=== PATIENT | male | born 1965 | race Caucasian/White ===

== ENCOUNTER 2017-08-22 10:23 | Inpatient (IN) | payer OTHER ==
[2017-08-22 11:01] VITALS: BMI 46.0
--- NOTE | 2017-08-22 13:04 | HP ---
Admission ROS [facility] Chief Complaint: I AM HERE FOR REHAB FROM ALCOHOL AND MARIJUANA Allergies/Adverse Reactions: Allergies Allergy/AdvReac Type Severity Reaction Status Date / Time No Known Drug Allergies Allergy Unknown Verified 05/10/14 18:18 lactose AdvReac Unknown LACTOSE Verified 05/10/14 18:18 INTOLERANCE History of Present Illness: THIS 52 YEARS OLD MALE WITH ALCOHOL AND MARIJUANA DEPENDENCE,SEEKING REHAB,LAST TREATMENT 2014 [facility] ADMITTED IN [facility] FOR GI BLEED,CELLULITIS OF LEFT LEG,AND DETOX FROM ALCOHOL HISTORY OF HTN NO MED ESOPHAGEAL BLEEDING LONGEST PERIOD OF SOBRIETY 3 YEARS SEIZURE LAST 5 YEARS AGO HISTORY OF DT DEPRESSION Exam Limitations: No Limitations - Ebola screening Have you traveled outside of the country in the last 21 days: No Have you had contact with anyone from an Ebola affected area: No Have you been sick,other than usual withdrawal symptoms: No Do you have a fever: No - Review of Systems Constitutional: No Symptoms Reported EENT: reports: No Symptoms Reported Respiratory: reports: No Symptoms reported (ASTHMA), Other Cardiac: reports: No Symptoms Reported GI: reports: No Symptoms Reported : reports: No Symptoms Reported Musculoskeletal: reports: No Symptoms Reported Neuro: reports: No Symptoms reported Endocrine: reports: No Symptoms Reported Hematology: reports: No Symptoms Reported Psychiatric: reports: No Sypmtoms Reported, Judgement Intact, Mood/Affect Appropiate, Orientated x3, Depressed Patient History - Patient Medical History Hx Anemia: Yes (NO MEDCATION) Hx Asthma: Yes (ON ALBUTEROL INHALER) Hx Chronic Obstructive Pulmonary Disease (COPD): No Hx Cancer: No Hx Cardiac Disorders: No Hx Congestive Heart Failure: No Hx Hypertension: Yes (ON MED,NO COMPLIANCE) Hx Hypercholesterolemia: No Hx Pacemaker: No HX Cerebrovascular Accident: No Hx Seizures: Yes (alcohol related-last episode was in 2011) Hx Dementia: No Hx Diabetes: No Hx Gastrointestinal Disorders: Yes (GI bleeding) Hx Liver Disease: No Hx Genitourinary Disorders: No Hx Sexually Transmitted Disorders: No Hx Renal Disease (ESRD): No Hx Thyroid Disease: No Hx Human Immunodeficiency Virus (HIV): No Hx Hepatitis C: No Hx Depression: Yes Hx Suicide Attempt: Yes (cut right wrist at age 37) Hx Bipolar Disorder: No Hx Schizophrenia: No Other Medical History: NO SUCIDAL,NO HOMICIDAL - Patient Surgical History Past Surgical History: Yes Hx Neurologic Surgery: No Hx Cataract Extraction: No Hx Cardiac Surgery: No Hx Lung Surgery: No Hx Breast Surgery: No Hx Breast Biopsy: No Hx Abdominal Surgery: No Hx Appendectomy: No Hx Cholecystectomy: No Hx Genitourinary Surgery: No Hx Section: No Hx Orthopedic Surgery: No Other Surgical History: left inguinal hernia repair in 1997 Anesthesia Reaction: No - PPD History Previous Implant?: Yes Documented Results: Negative w/proof Implanted On Prior [facility] Admission?: Yes Date: 05/12/14 Results: 0 mm PPD to be Administered?: Yes - Smoking Cessation Smoking history: Current every day smoker Have you smoked in the past 12 months: Yes Aproximately how many cigarettes per day: 20 Cigars Per Day: 0 Hx Chewing Tobacco Use: No Initiated information on smoking cessation: Yes 'Breaking Loose' booklet given: 08/22/17 - Substance & Tx. History Hx Alcohol Use: Yes Hx Substance Use: Yes Substance Use Type: Alcohol, Marijuana - Substances Abused Alcohol-gui/vodka/beer Route: Oral Frequency: Daily Amount used: 2 pts./1-6 pk. Age of first use: 13 Date of Last Use: 08/14/17 Marijuana Route: Smoking Frequency: Daily Amount used: $10 Age of first use: 13 Date of Last Use: 08/16/17 Family Disease History - Family Disease History Family Disease History: Heart Disease: Brother (DC, Lung ca ), CA: Mother (HAD LUNG CA. AND ), Respiratory: Brother Admission Physical Exam [facility] - Vital Signs Vital Signs: Vital Signs - 24 hr 08/22/17 10:48 Temperature 96.1 F L Pulse Rate 89 Respiratory 18 Rate Blood Pressure 122/80 - Physical General Appearance: Yes: Within Normal Limits, No Apparent Distress HEENTM: Yes: Normal ENT Inspection, CHELSY, Pharynx Normal Respiratory: Yes: Lungs Clear, Normal Breath Sounds, No Respiratory Distress Neck: Yes: Within Normal Limits Breast: Yes: Other (GYNECOMASTIA) Cardiology: Yes: Within Normal Limits, Regular Rhythm, Regular Rate, S1, S2 Abdominal: Yes: Within Normal Limits, Normal Bowel Sounds, Non Tender, Flat, Soft Genitourinary: Yes: Within Normal Limits Musculoskeletal: Yes: Within Normal Limits, full range of Motion Extremities: Yes: Normal Inspection, Non-Tender Neurological: Yes: commercial assistant II-XII NML intact, Fully Oriented, Alert, Motor Strength 5/5 Integumentary: Yes: Within Normal Limits Lymphatic: Yes: Within Normal Limits - Diagnostic (1) Essential hypertension Current Visit: No Status: Active (2) Seizure disorder Current Visit: No Status: Active (3) cannabis dependence Current Visit: No Status: Active (4) chronic edema both legs Current Visit: No Status: Active (5) depression Current Visit: No Status: Active (6) gynecomastia Current Visit: No Status: Active (7) s/p left inguinal herniorrhaphy Current Visit: No Status: Active (8) upper gi bleeding requiring transfusion by history Current Visit: No Status: Active (9) Alcohol dependence Current Visit: No Status: Acute (10) Nicotine dependence Current Visit: No Status: Acute Cleared for Admission [facility] - Detox or Rehab Claeared for Rehab Admission: Yes S Breath Alcohol Content Breath Alcohol Content: 0 Urine Drug Screen - Results Drug Screen Negative: No Urine Drug Screen Results: THC-Marijuana, BZO-Benzodiazepines, TCA-Tricyclic Antidepress Inpatient Rehab Admission - Initial Determination Are CD services needed?: Yes Free of communicable disease: Yes Not in need of hospitalization: Yes - Rehab Admission Criteria Previous failed treatment: Yes Poor recovery environment: Yes Comorbidities: Yes Patient is meeting Inpatient Rehab admission criteria:: Yes
[2017-08-22] MEDS ORDERED: MAGNESIUM HYDROX 2400MG/30ML ORAL SUSPENSION 30 ML CUP PO PRN (13:20)
[2017-08-22] MEDS ORDERED: P-EPHED 60MG/TRIPROLIDI 2.5MG TABLET PO PRN (13:20)
[2017-08-22] MEDS ORDERED: MAGNESIUM CITRATE 300 ML BOTTLE PO PRN (13:20)
[2017-08-22] MEDS ORDERED: MENTHOL/PHENOL 1 EACH UD MM PRN (13:20)
[2017-08-22] MEDS ORDERED: LOPERAMIDE HCL 2 MG CAPSULE PO PRN (13:20)
[2017-08-22] MEDS ORDERED: guaiFENesin/D-METHORPHAN HB 10 ML UNIT-DOSE CUPS PO PRN (13:20)
[2017-08-22] MEDS: NICOTINE 21 MG/24 HOURS TOPICAL PATCH TD SCH (15:27)
[2017-08-22] MEDS ORDERED: TUBERCULIN PPD 5 TU/0.1ML VIAL ID ONE (15:30)
[2017-08-22 19:07] LABS: MCH 28.6 pg (25.7-33.7); MCHC 33.3 g/dl (32.0-35.9); MEAN PLT VOLUME 9.7 fl (7.5-11.1); PLATELET COUNT 125 K/MM3 (134-434); RDW 16.1 % (11.9-15.9); WHITE BLOOD COUNT 6.5 K/mm3 (4.0-10.0)
[2017-08-22 19:48] LABS: URINE APPEARANCE SLCLOUDY; URINE BILIRUBIN NEGATIVE (NEGATIVE); URINE BLOOD NEGATIVE (NEGATIVE); URINE COLOR AMBER; URINE GLUCOSE (UA) NEGATIVE (NEGATIVE); URINE KETONE TRACE (NEGATIVE); URINE NITRITE NEGATIVE (NEGATIVE); URINE PROTEIN NEGATIVE (NEGATIVE); URINE UROBILINOGEN NEGATIVE mg/dL (0.2-1.0)
[2017-08-22 20:24] LABS: ALK PHOS 79 U/L (45-117); ANION GAP 10 (8-16); BILIRUBIN,TOTAL 0.6 mg/dL (0.2-1.0); CALCIUM 8.6 mg/dL (8.5-10.1); CO2 25 mmol/L (21-32); CREATININE 0.7 mg/dL (0.7-1.3); GLUCOSE,RANDOM 150 mg/dL (74-106); SGOT/AST 32 U/L (15-37); SGPT/ALT 46 U/L (12-78); TOT PROT 6.9 g/dl (6.4-8.2)
[2017-08-22] MEDS: THIAMINE HCL 100 MG TABLET (FP) PO SCH (21:19)
[2017-08-22] MEDS: hydrOXYzine PAMOATE 50 MG CAPSULE (FP) PO PRN (21:20)
[2017-08-22] MEDS: ALBUTEROL SO4 18 GM HFA INHALER IH PRN (21:21)
[2017-08-22 21:26] LABS: URINE LEUK ESTERASE Negative (NEGATIVE)
[2017-08-23] MEDS: PRENATAL VITAMINS W/ FOLIC ACID TABLET (FP) PO SCH (09:46)
[2017-08-23] MEDS: NICOTINE 21 MG/24 HOURS TOPICAL PATCH TD SCH (09:46)
--- NOTE | 2017-08-23 16:23 | EKG ---
Test Reason : Blood Pressure : / mmHG Vent. Rate : 087 BPM Atrial Rate : 087 BPM P-R Int : 144 ms QRS Dur : 094 ms QT Int : 396 ms P-R-T Axes : 043 048 095 degrees QTc Int : 476 ms NORMAL SINUS RHYTHM T WAVE ABNORMALITY, CONSIDER ANTEROLATERAL ISCHEMIA PROLONGED QT ABNORMAL ECG WHEN COMPARED WITH ECG OF 22-AUG-2017 23:24, NO SIGNIFICANT CHANGE WAS FOUND REPEAT EKG IF CLINICALLY INDICATED Confirmed by SANCHEZ HUNTLEY MD ([id number]) on 08/23/2017 4:23:29 PM Referred By: VASQUEZ SCHAFER Confirmed By:SANCHEZ HUNTLEY MD
--- NOTE | 2017-08-23 16:24 | EKG ---
Test Reason : Blood Pressure : / mmHG Vent. Rate : 094 BPM Atrial Rate : 094 BPM P-R Int : 136 ms QRS Dur : 094 ms QT Int : 368 ms P-R-T Axes : 041 046 104 degrees QTc Int : 460 ms NORMAL SINUS RHYTHM T WAVE ABNORMALITY, CONSIDER LATERAL ISCHEMIA PROLONGED QT ABNORMAL ECG WHEN COMPARED WITH ECG OF 21-MAR-2014 23:11, INVERTED T WAVES HAVE REPLACED NONSPECIFIC T WAVE ABNORMALITY IN ANTEROLATERAL LEADS REPEAT EKG IF CLINICALLY INDICATED Confirmed by SANCHEZ HUNTLEY MD ([id number]) on 08/23/2017 4:23:58 PM Referred By: VASQUEZ SCHAFER Confirmed By:SANCHEZ HUNTLEY MD
[2017-08-23] MEDS: THIAMINE HCL 100 MG TABLET (FP) PO SCH (21:11)
[2017-08-23] MEDS: hydrOXYzine PAMOATE 50 MG CAPSULE (FP) PO PRN (21:11)
[2017-08-23] MEDS: ALBUTEROL SO4 18 GM HFA INHALER IH PRN (21:12)
[2017-08-24] MEDS: ALBUTEROL SO4 18 GM HFA INHALER IH PRN (09:42)
[2017-08-24] MEDS: PRENATAL VITAMINS W/ FOLIC ACID TABLET (FP) PO SCH (09:42)
[2017-08-24] MEDS: NICOTINE 21 MG/24 HOURS TOPICAL PATCH TD SCH (09:42)
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
[2017-08-24] MEDS: hydrOXYzine PAMOATE 50 MG CAPSULE (FP) PO PRN (21:46)
[2017-08-24] MEDS: THIAMINE HCL 100 MG TABLET (FP) PO SCH (21:46)
[2017-08-24] MEDS: SUVOREXANT 10 MG TABLET PO PRN (21:46)
[2017-08-24] MEDS: IBUPROFEN 400 MG TABLET (FP) PO PRN (21:46)
[2017-08-25] MEDS: PRENATAL VITAMINS W/ FOLIC ACID TABLET (FP) PO SCH (09:45)
[2017-08-25] MEDS: NICOTINE 21 MG/24 HOURS TOPICAL PATCH TD SCH (09:45)
[2017-08-25] MEDS: IBUPROFEN 400 MG TABLET (FP) PO PRN (09:46)
[2017-08-25] MEDS: hydrOXYzine PAMOATE 50 MG CAPSULE (FP) PO PRN (21:26)
[2017-08-25] MEDS: ACETAMINOPHEN 325 MG TABLET (FP) PO PRN (21:26)
[2017-08-25] MEDS: THIAMINE HCL 100 MG TABLET (FP) PO SCH (21:26)
[2017-08-25] MEDS: SUVOREXANT 10 MG TABLET PO PRN (21:28)
[2017-08-25] MEDS: MAG HYDROX/AL HYDROX/SIMETH 30 ML UNIT-DOSE CUP PO PRN (22:28)
[2017-08-26] MEDS: NICOTINE 21 MG/24 HOURS TOPICAL PATCH TD SCH (09:37)
[2017-08-26] MEDS: PRENATAL VITAMINS W/ FOLIC ACID TABLET (FP) PO SCH (09:38)
[2017-08-26] MEDS: IBUPROFEN 400 MG TABLET (FP) PO PRN (09:38)
--- NOTE | 2017-08-26 13:07 | PN ---
[facility] Progress Note Note: c/o back pain and ankle swelling lidocaine patch, flexeril and elevate legs
[2017-08-26] MEDS: LIDOCAINE 5% TOPICAL PATCH TP SCH (14:30)
[2017-08-26] MEDS: FUROSEMIDE 40 MG TABLET (FP) PO SCH (14:31)
[2017-08-26] MEDS: CYCLOBENZAPRINE HCL 10 MG TABLET (FP) PO SCH ×2 (14:31→22:06)
[2017-08-26] MEDS: THIAMINE HCL 100 MG TABLET (FP) PO SCH (22:06)
[2017-08-26] MEDS: SUVOREXANT 10 MG TABLET PO PRN (22:07)
[2017-08-26] MEDS: LIDOCAINE PATCH REMOVAL MC SCH (22:08)
[2017-08-27] MEDS: CYCLOBENZAPRINE HCL 10 MG TABLET (FP) PO SCH ×3 (06:19→21:09)
[2017-08-27] MEDS: LIDOCAINE 5% TOPICAL PATCH TP SCH (09:37)
[2017-08-27] MEDS: FUROSEMIDE 40 MG TABLET (FP) PO SCH (09:37)
[2017-08-27] MEDS: NICOTINE 21 MG/24 HOURS TOPICAL PATCH TD SCH (09:37)
[2017-08-27] MEDS: PRENATAL VITAMINS W/ FOLIC ACID TABLET (FP) PO SCH (09:37)
[2017-08-27] MEDS: ACETAMINOPHEN 325 MG TABLET (FP) PO PRN (17:58)
[2017-08-27] MEDS: THIAMINE HCL 100 MG TABLET (FP) PO SCH (21:09)
[2017-08-27] MEDS: LIDOCAINE PATCH REMOVAL MC SCH (21:10)
[2017-08-27] MEDS: SUVOREXANT 10 MG TABLET PO PRN (22:23)
[2017-08-28] MEDS: CYCLOBENZAPRINE HCL 10 MG TABLET (FP) PO SCH ×3 (06:33→21:31)
[2017-08-28] MEDS: FUROSEMIDE 40 MG TABLET (FP) PO SCH (09:45)
[2017-08-28] MEDS: PRENATAL VITAMINS W/ FOLIC ACID TABLET (FP) PO SCH (09:45)
[2017-08-28] MEDS: NICOTINE 21 MG/24 HOURS TOPICAL PATCH TD SCH (09:46)
[2017-08-28] MEDS: LIDOCAINE 5% TOPICAL PATCH TP SCH (09:46)
[2017-08-28] MEDS: SUVOREXANT 10 MG TABLET PO PRN (21:31)
[2017-08-28] MEDS: LIDOCAINE PATCH REMOVAL MC SCH (21:31)
[2017-08-28] MEDS: THIAMINE HCL 100 MG TABLET (FP) PO SCH (21:31)
[2017-08-29] MEDS: CYCLOBENZAPRINE HCL 10 MG TABLET (FP) PO SCH ×3 (05:59→21:13)
[2017-08-29] MEDS: LIDOCAINE 5% TOPICAL PATCH TP SCH (09:36)
[2017-08-29] MEDS: FUROSEMIDE 40 MG TABLET (FP) PO SCH (09:36)
[2017-08-29] MEDS: NICOTINE 21 MG/24 HOURS TOPICAL PATCH TD SCH (09:36)
[2017-08-29] MEDS: PRENATAL VITAMINS W/ FOLIC ACID TABLET (FP) PO SCH (09:36)
[2017-08-29] MEDS: MAG HYDROX/AL HYDROX/SIMETH 30 ML UNIT-DOSE CUP PO PRN (20:11)
[2017-08-29] MEDS: THIAMINE HCL 100 MG TABLET (FP) PO SCH (21:12)
[2017-08-29] MEDS: hydrOXYzine PAMOATE 50 MG CAPSULE (FP) PO PRN (21:12)
[2017-08-29] MEDS: LIDOCAINE PATCH REMOVAL MC SCH (21:13)
[2017-08-29] MEDS: SUVOREXANT 10 MG TABLET PO PRN (21:13)
[2017-08-30] MEDS: CYCLOBENZAPRINE HCL 10 MG TABLET (FP) PO SCH ×3 (06:16→21:39)
[2017-08-30] MEDS: FUROSEMIDE 40 MG TABLET (FP) PO SCH (09:24)
[2017-08-30] MEDS: LIDOCAINE 5% TOPICAL PATCH TP SCH (09:24)
[2017-08-30] MEDS: PRENATAL VITAMINS W/ FOLIC ACID TABLET (FP) PO SCH (09:24)
[2017-08-30] MEDS: NICOTINE 21 MG/24 HOURS TOPICAL PATCH TD SCH (09:24)
[2017-08-30] MEDS: MAG HYDROX/AL HYDROX/SIMETH 30 ML UNIT-DOSE CUP PO PRN (14:49)
[2017-08-30] MEDS: THIAMINE HCL 100 MG TABLET (FP) PO SCH (21:39)
[2017-08-30] MEDS: SUVOREXANT 10 MG TABLET PO PRN (21:41)
[2017-08-30] MEDS: LIDOCAINE PATCH REMOVAL MC SCH (21:52)
[2017-08-31] MEDS: CYCLOBENZAPRINE HCL 10 MG TABLET (FP) PO SCH ×3 (06:01→21:21)
[2017-08-31] MEDS: NICOTINE 21 MG/24 HOURS TOPICAL PATCH TD SCH (09:36)
[2017-08-31] MEDS: FUROSEMIDE 40 MG TABLET (FP) PO SCH (09:36)
[2017-08-31] MEDS: PRENATAL VITAMINS W/ FOLIC ACID TABLET (FP) PO SCH (09:36)
[2017-08-31] MEDS: LIDOCAINE 5% TOPICAL PATCH TP SCH (09:37)
[2017-08-31] MEDS: THIAMINE HCL 100 MG TABLET (FP) PO SCH (21:21)
[2017-08-31] MEDS: SUVOREXANT 10 MG TABLET PO PRN (21:22)
[2017-08-31] MEDS: LIDOCAINE PATCH REMOVAL MC SCH (21:53)
[2017-09-01] MEDS: CYCLOBENZAPRINE HCL 10 MG TABLET (FP) PO SCH ×3 (06:14→21:13)
[2017-09-01] MEDS: FUROSEMIDE 40 MG TABLET (FP) PO SCH (09:52)
[2017-09-01] MEDS: PRENATAL VITAMINS W/ FOLIC ACID TABLET (FP) PO SCH (09:52)
[2017-09-01] MEDS: LIDOCAINE 5% TOPICAL PATCH TP SCH (09:52)
[2017-09-01] MEDS: NICOTINE 21 MG/24 HOURS TOPICAL PATCH TD SCH (09:52)
[2017-09-01] MEDS: SUVOREXANT 10 MG TABLET PO PRN (21:13)
[2017-09-01] MEDS: THIAMINE HCL 100 MG TABLET (FP) PO SCH (21:13)
[2017-09-01] MEDS: LIDOCAINE PATCH REMOVAL MC SCH ×3 (22:05→22:38)
[2017-09-02] MEDS: CYCLOBENZAPRINE HCL 10 MG TABLET (FP) PO SCH ×3 (06:27→21:21)
[2017-09-02] MEDS: FUROSEMIDE 40 MG TABLET (FP) PO SCH (09:30)
[2017-09-02] MEDS: LIDOCAINE 5% TOPICAL PATCH TP SCH (09:30)
[2017-09-02] MEDS: NICOTINE 21 MG/24 HOURS TOPICAL PATCH TD SCH (09:30)
[2017-09-02] MEDS: PRENATAL VITAMINS W/ FOLIC ACID TABLET (FP) PO SCH (09:30)
[2017-09-02] MEDS: ALBUTEROL SO4 18 GM HFA INHALER IH PRN (09:30)
[2017-09-02] MEDS: THIAMINE HCL 100 MG TABLET (FP) PO SCH (21:21)
[2017-09-02] MEDS: LIDOCAINE PATCH REMOVAL MC SCH (22:07)
[2017-09-02] MEDS: SUVOREXANT 10 MG TABLET PO PRN (22:59)
[2017-09-03] MEDS: CYCLOBENZAPRINE HCL 10 MG TABLET (FP) PO SCH ×3 (06:12→21:17)
[2017-09-03] MEDS: NICOTINE 21 MG/24 HOURS TOPICAL PATCH TD SCH (09:42)
[2017-09-03] MEDS: LIDOCAINE 5% TOPICAL PATCH TP SCH (09:42)
[2017-09-03] MEDS: PRENATAL VITAMINS W/ FOLIC ACID TABLET (FP) PO SCH (09:42)
[2017-09-03] MEDS: FUROSEMIDE 40 MG TABLET (FP) PO SCH (09:42)
[2017-09-03] MEDS: THIAMINE HCL 100 MG TABLET (FP) PO SCH (21:17)
[2017-09-03] MEDS: hydrOXYzine PAMOATE 50 MG CAPSULE (FP) PO PRN (21:17)
[2017-09-03] MEDS: LIDOCAINE PATCH REMOVAL MC SCH (21:18)
[2017-09-04] MEDS: CYCLOBENZAPRINE HCL 10 MG TABLET (FP) PO SCH ×3 (06:28→21:12)
[2017-09-04] MEDS: NICOTINE 21 MG/24 HOURS TOPICAL PATCH TD SCH (09:29)
[2017-09-04] MEDS: FUROSEMIDE 40 MG TABLET (FP) PO SCH (09:29)
[2017-09-04] MEDS: PRENATAL VITAMINS W/ FOLIC ACID TABLET (FP) PO SCH (09:29)
[2017-09-04] MEDS: LIDOCAINE 5% TOPICAL PATCH TP SCH (09:29)
[2017-09-04] MEDS: THIAMINE HCL 100 MG TABLET (FP) PO SCH (21:12)
[2017-09-04] MEDS: SUVOREXANT 10 MG TABLET PO PRN (21:12)
[2017-09-04] MEDS: LIDOCAINE PATCH REMOVAL MC SCH (21:13)
[2017-09-05] MEDS: CYCLOBENZAPRINE HCL 10 MG TABLET (FP) PO SCH ×3 (06:26→21:26)
[2017-09-05] MEDS: ACETAMINOPHEN 325 MG TABLET (FP) PO PRN (06:49)
[2017-09-05] MEDS: LIDOCAINE 5% TOPICAL PATCH TP SCH (09:39)
[2017-09-05] MEDS: FUROSEMIDE 40 MG TABLET (FP) PO SCH (09:39)
[2017-09-05] MEDS: PRENATAL VITAMINS W/ FOLIC ACID TABLET (FP) PO SCH (09:39)
[2017-09-05] MEDS: NICOTINE 21 MG/24 HOURS TOPICAL PATCH TD SCH (09:40)
[2017-09-05] MEDS: THIAMINE HCL 100 MG TABLET (FP) PO SCH (21:27)
[2017-09-05] MEDS: SUVOREXANT 10 MG TABLET PO PRN (21:27)
[2017-09-05] MEDS: LIDOCAINE PATCH REMOVAL MC SCH (21:51)
[2017-09-06] MEDS: CYCLOBENZAPRINE HCL 10 MG TABLET (FP) PO SCH ×3 (05:58→21:07)
[2017-09-06] MEDS: PRENATAL VITAMINS W/ FOLIC ACID TABLET (FP) PO SCH (09:29)
[2017-09-06] MEDS: LIDOCAINE 5% TOPICAL PATCH TP SCH (09:29)
[2017-09-06] MEDS: NICOTINE 21 MG/24 HOURS TOPICAL PATCH TD SCH (09:29)
[2017-09-06] MEDS: FUROSEMIDE 40 MG TABLET (FP) PO SCH (09:29)
[2017-09-06] MEDS: THIAMINE HCL 100 MG TABLET (FP) PO SCH (21:07)
[2017-09-06] MEDS: LIDOCAINE PATCH REMOVAL MC SCH (21:14)
[2017-09-06] MEDS: SUVOREXANT 10 MG TABLET PO PRN (22:25)
[2017-09-07] MEDS: CYCLOBENZAPRINE HCL 10 MG TABLET (FP) PO SCH ×3 (06:04→21:06)
[2017-09-07] MEDS: NICOTINE 21 MG/24 HOURS TOPICAL PATCH TD SCH (09:46)
[2017-09-07] MEDS: PRENATAL VITAMINS W/ FOLIC ACID TABLET (FP) PO SCH (09:46)
[2017-09-07] MEDS: LIDOCAINE 5% TOPICAL PATCH TP SCH (09:47)
[2017-09-07] MEDS: FUROSEMIDE 40 MG TABLET (FP) PO SCH (09:47)
[2017-09-07] MEDS: hydrOXYzine PAMOATE 50 MG CAPSULE (FP) PO PRN (21:06)
[2017-09-07] MEDS: THIAMINE HCL 100 MG TABLET (FP) PO SCH (21:06)
[2017-09-07] MEDS: LIDOCAINE PATCH REMOVAL MC SCH (21:06)
[2017-09-07] MEDS: SUVOREXANT 10 MG TABLET PO PRN (21:07)
[2017-09-08] MEDS: CYCLOBENZAPRINE HCL 10 MG TABLET (FP) PO SCH ×3 (06:37→21:03)
[2017-09-08] MEDS: FUROSEMIDE 40 MG TABLET (FP) PO SCH (09:29)
[2017-09-08] MEDS: PRENATAL VITAMINS W/ FOLIC ACID TABLET (FP) PO SCH (09:29)
[2017-09-08] MEDS: NICOTINE 21 MG/24 HOURS TOPICAL PATCH TD SCH (09:29)
[2017-09-08] MEDS: LIDOCAINE 5% TOPICAL PATCH TP SCH (09:29)
[2017-09-08] MEDS: THIAMINE HCL 100 MG TABLET (FP) PO SCH (21:03)
[2017-09-08] MEDS: SUVOREXANT 10 MG TABLET PO PRN (21:03)
[2017-09-08] MEDS: LIDOCAINE PATCH REMOVAL MC SCH (21:05)
[2017-09-09] MEDS: IBUPROFEN 600 MG TABLET (FP) PO PRN ×3 (06:08→21:28)
[2017-09-09] MEDS: CYCLOBENZAPRINE HCL 10 MG TABLET (FP) PO SCH ×3 (06:08→21:27)
[2017-09-09] MEDS: NICOTINE 21 MG/24 HOURS TOPICAL PATCH TD SCH (09:40)
[2017-09-09] MEDS: ALBUTEROL SO4 18 GM HFA INHALER IH PRN (09:41)
[2017-09-09] MEDS: PRENATAL VITAMINS W/ FOLIC ACID TABLET (FP) PO SCH (09:41)
[2017-09-09] MEDS: FUROSEMIDE 40 MG TABLET (FP) PO SCH (09:41)
[2017-09-09] MEDS: LIDOCAINE 5% TOPICAL PATCH TP SCH (09:41)
[2017-09-09] MEDS: THIAMINE HCL 100 MG TABLET (FP) PO SCH (21:27)
[2017-09-09] MEDS: hydrOXYzine PAMOATE 50 MG CAPSULE (FP) PO PRN (21:29)
[2017-09-09] MEDS: LIDOCAINE PATCH REMOVAL MC SCH (21:35)
[2017-09-10] MEDS: CYCLOBENZAPRINE HCL 10 MG TABLET (FP) PO SCH ×3 (06:09→21:12)
[2017-09-10] MEDS: FUROSEMIDE 40 MG TABLET (FP) PO SCH (09:45)
[2017-09-10] MEDS: LIDOCAINE 5% TOPICAL PATCH TP SCH (09:45)
[2017-09-10] MEDS: NICOTINE 21 MG/24 HOURS TOPICAL PATCH TD SCH (09:45)
[2017-09-10] MEDS: IBUPROFEN 600 MG TABLET (FP) PO PRN ×2 (09:45→21:13)
[2017-09-10] MEDS: PRENATAL VITAMINS W/ FOLIC ACID TABLET (FP) PO SCH (09:45)
[2017-09-10] MEDS: hydrOXYzine PAMOATE 50 MG CAPSULE (FP) PO PRN (21:12)
[2017-09-10] MEDS: THIAMINE HCL 100 MG TABLET (FP) PO SCH (21:12)
[2017-09-10] MEDS: LIDOCAINE PATCH REMOVAL MC SCH (21:21)
[2017-09-11] MEDS: CYCLOBENZAPRINE HCL 10 MG TABLET (FP) PO SCH ×3 (05:55→21:12)
[2017-09-11] MEDS: NICOTINE 21 MG/24 HOURS TOPICAL PATCH TD SCH (09:30)
[2017-09-11] MEDS: FUROSEMIDE 40 MG TABLET (FP) PO SCH (09:30)
[2017-09-11] MEDS: PRENATAL VITAMINS W/ FOLIC ACID TABLET (FP) PO SCH (09:30)
[2017-09-11] MEDS: LIDOCAINE 5% TOPICAL PATCH TP SCH (09:30)
[2017-09-11] MEDS: IBUPROFEN 600 MG TABLET (FP) PO PRN (14:31)
[2017-09-11] MEDS: THIAMINE HCL 100 MG TABLET (FP) PO SCH (21:12)
[2017-09-11] MEDS: ALBUTEROL SO4 18 GM HFA INHALER IH PRN (21:12)
[2017-09-11] MEDS: hydrOXYzine PAMOATE 50 MG CAPSULE (FP) PO PRN (21:13)
[2017-09-11] MEDS: LIDOCAINE PATCH REMOVAL MC SCH (21:13)
[2017-09-12] MEDS: CYCLOBENZAPRINE HCL 10 MG TABLET (FP) PO SCH ×3 (06:03→22:01)
[2017-09-12] MEDS: IBUPROFEN 600 MG TABLET (FP) PO PRN ×2 (06:03→22:02)
[2017-09-12] MEDS: FUROSEMIDE 40 MG TABLET (FP) PO SCH (09:45)
[2017-09-12] MEDS: NICOTINE 21 MG/24 HOURS TOPICAL PATCH TD SCH (09:45)
[2017-09-12] MEDS: LIDOCAINE 5% TOPICAL PATCH TP SCH (09:45)
[2017-09-12] MEDS: PRENATAL VITAMINS W/ FOLIC ACID TABLET (FP) PO SCH (09:45)
[2017-09-12] MEDS: THIAMINE HCL 100 MG TABLET (FP) PO SCH (22:01)
[2017-09-12] MEDS: hydrOXYzine PAMOATE 50 MG CAPSULE (FP) PO PRN (22:01)
[2017-09-12] MEDS: LIDOCAINE PATCH REMOVAL MC SCH (22:40)
[2017-09-13] MEDS: CYCLOBENZAPRINE HCL 10 MG TABLET (FP) PO SCH ×3 (06:11→21:48)
[2017-09-13] MEDS: NICOTINE 21 MG/24 HOURS TOPICAL PATCH TD SCH (09:21)
[2017-09-13] MEDS: LIDOCAINE 5% TOPICAL PATCH TP SCH (09:21)
[2017-09-13] MEDS: PRENATAL VITAMINS W/ FOLIC ACID TABLET (FP) PO SCH (09:21)
[2017-09-13] MEDS: FUROSEMIDE 40 MG TABLET (FP) PO SCH (09:21)
[2017-09-13] MEDS: THIAMINE HCL 100 MG TABLET (FP) PO SCH (21:48)
[2017-09-13] MEDS: hydrOXYzine PAMOATE 50 MG CAPSULE (FP) PO PRN (21:48)
[2017-09-13] MEDS: LIDOCAINE PATCH REMOVAL MC SCH (23:36)
[2017-09-14] MEDS: CYCLOBENZAPRINE HCL 10 MG TABLET (FP) PO SCH ×3 (06:23→21:47)
[2017-09-14] MEDS: NICOTINE 21 MG/24 HOURS TOPICAL PATCH TD SCH (09:36)
[2017-09-14] MEDS: LIDOCAINE 5% TOPICAL PATCH TP SCH (09:36)
[2017-09-14] MEDS: FUROSEMIDE 40 MG TABLET (FP) PO SCH (09:36)
[2017-09-14] MEDS: PRENATAL VITAMINS W/ FOLIC ACID TABLET (FP) PO SCH (09:36)
--- NOTE | 2017-09-14 13:14 | PN ---
Psychiatric Progress Note Vital Signs: Vital Signs Period Temp Pulse Resp BP Sys/Morris Pulse Ox Last 24 Hr 97.6 F 105-117 18-18 142-151/84-85 Date of Session: 09/14/17 Chief Complaint:: Discharge Note HPI: Patient addressing Alcohol and Cannabis Dependence comorbid with Nicotine Dependence, MDD,recurrent episode in full remission, Substance-induced Mood Disorder and Substance-induce Sleep Disorder ROS: HTN, Seizure Disorder were medically managed Current Medications: Active Medications Generic Name Dose Route Start Last Admin Trade Name Freq PRN Reason Stop Dose Admin Acetaminophen 650 mg 08/22/17 13:20 09/05/17 06:49 Tylenol - PO 650 mg Q4H PRN Administration PAIN Al Hydroxide/Mg Hydroxide 30 ml 08/22/17 13:20 08/30/17 14:49 Mylanta Oral Suspension - PO 30 ml Q6H PRN Administration DYSPEPSIA Albuterol Sulfate 2 puff 08/22/17 13:27 09/11/17 21:12 Ventolin Hfa Inhaler - IH 2 puff Q4H PRN Administration ASTHMA Cyclobenzaprine HCl 10 mg 08/26/17 14:00 09/14/17 06:23 Flexeril - PO 10 mg TID STANLEY Administration Eucalyptus/Menthol/Phenol/Sorbitol 1 each 08/22/17 13:20 Cepastat Lozenge - MM Q4H PRN SORE THROAT Furosemide 40 mg 08/26/17 13:49 09/14/17 09:36 Lasix - PO 40 mg DAILY STANLEY Administration Guaifenesin 10 ml 08/22/17 13:20 Robitussin Dm - PO Q6H PRN COUGH Hydroxyzine Pamoate 50 mg 08/22/17 13:20 09/13/17 21:48 Vistaril - PO 50 mg Q4H PRN Administration AGITATION Ibuprofen 600 mg 08/29/17 12:18 09/12/17 22:02 Motrin - PO 600 mg Q6H PRN Administration SEVERE PAIN Lidocaine 1 patch 08/26/17 13:49 09/14/17 09:36 Lidoderm Patch - TP Not Given DAILY STANLEY Loperamide HCl 4 mg 08/22/17 13:20 Imodium - PO Q6H PRN DIARRHEA Magnesium Citrate 300 ml 08/22/17 13:20 Citroma - PO Q48H PRN CONSTIPATION Magnesium Hydroxide 30 ml 08/22/17 13:20 Milk Of Magnesia - PO DAILY PRN CONSTIPATION Miscellaneous 1 each 08/26/17 22:00 09/13/17 23:36 Lidoderm Patch Removal MC Not Given DAILY@2200 STANLEY Nicotine 21 mg 08/22/17 14:14 09/14/17 09:36 Nicoderm Patch - TD 21 mg DAILY STANLEY Administration Multivit/Folic Acid/Iron 1 tab 08/23/17 10:00 09/14/17 09:36 Vitamins (Sjr) - PO 1 tab DAILY STANLEY Administration Pseudoephedrine/Triprolidine 1 combo 08/22/17 13:20 Actifed - PO TID PRN NASAL CONGESTION Thiamine HCl 100 mg 08/22/17 22:00 09/13/17 21:48 Vitamin B1 - PO 100 mg HS STANLEY Administration Current Side Effect: No Lab tests ordered: Yes Lab tests reviewed: Yes Provider note:: Patient will complete this program on 09/15/17. He has met his treatment goals and will continue to address his issues in outpatient treatment at [facility]. Told software writer that from his participation in this program, he has learned that he cannot do it on his own. He needs to establish a sober support network in order to maintain abstinence. He responded well to Belsomra 10 mg po HS prn for insomnia. He is stable for discharge on 09/15/17 Total face to face time:: 35 Mental Status Exam - Mental Status Exam Alert and Oriented to: Time, Person Cognitive Function: Fair Patient Appearance: Well Groomed Mood: Hopeful, Euthymic Affect: Appropriate Patient Behavior: Cooperative Speech Pattern: Clear Voice Loudness: Normal Thought Process: Intact, Goal Oriented Thought Disorder: Not Present Hallucinations: Denies Suicidal Ideation: Denies Homicidal Ideation: Denies Insight/Judgement: Fair Sleep: Fair Appetite: Good Muscle strength/Tone: Normal Gait/Station: Spastic Psychiatric Treatment Plan - Problem List (1) Alcohol dependence Current Visit: No (2) cannabis dependence Current Visit: No (3) Nicotine dependence Current Visit: No (4) Major depressive disorder, recurrent episode, in full remission Current Visit: No (5) Substance induced mood disorder Current Visit: Yes (6) Substance-induced sleep disorder Current Visit: Yes (7) Essential hypertension Current Visit: No (8) Seizure disorder Current Visit: No (9) gynecomastia Current Visit: No (10) s/p left inguinal herniorrhaphy Current Visit: No (11) upper gi bleeding requiring transfusion by history Current Visit: No (12) Cirrhosis with alcoholism Current Visit: No Initial treatment plan: Patient will be discharged tomorrow and referred to [facility] for outpatient treatment
[2017-09-14] MEDS: THIAMINE HCL 100 MG TABLET (FP) PO SCH (21:47)
[2017-09-14] MEDS: LIDOCAINE PATCH REMOVAL MC SCH (21:47)
[2017-09-14] MEDS: hydrOXYzine PAMOATE 50 MG CAPSULE (FP) PO PRN (21:49)
[2017-09-14] MEDS: ACETAMINOPHEN 325 MG TABLET (FP) PO PRN (23:43)
[2017-09-15] MEDS: CYCLOBENZAPRINE HCL 10 MG TABLET (FP) PO SCH (06:05)
[2017-09-15 06:40] VITALS: TEMP 97.4
[2017-09-15] MEDS: PRENATAL VITAMINS W/ FOLIC ACID TABLET (FP) PO SCH (09:36)
[2017-09-15] MEDS: NICOTINE 21 MG/24 HOURS TOPICAL PATCH TD SCH (09:37)
[2017-09-15] MEDS: LIDOCAINE 5% TOPICAL PATCH TP SCH (09:37)
[2017-09-15] MEDS: FUROSEMIDE 40 MG TABLET (FP) PO SCH (09:37)
[2017-09-15 10:14] VITALS: BP 135/90; PULSE 119
== END 2017-09-15 09:45 | disposition home or self-care (01) | DRG 199 ==
LOC: YASAS 10:23 → Y3W 12:28
PROVIDERS: ADMIT Psychiatry & Neurology Psychiatry; ATTEND Psychiatry & Neurology Psychiatry
PROC: HZ42ZZZ Group Counseling for Substance Abuse Treatment, Cognitive-Behavioral (ICD-10-PCS; principal; 2017-08-22)
DX: I10 Essential (primary) hypertension (principal); F10.20 Alcohol dependence, uncomplicated; F12.20 Cannabis dependence, uncomplicated; F17.210 Nicotine dependence, cigarettes, uncomplicated; F19.24 Other psychoactive substance dependence with psychoactive substance-induced mood disorder; F19.282 Other psychoactive substance dependence with psychoactive substance-induced sleep disorder; F33.42 Major depressive disorder, recurrent, in full remission; K70.30 Alcoholic cirrhosis of liver without ascites; G40.909 Epilepsy, unspecified, not intractable, without status epilepticus
CPT/HCPCS: 36415; 80053; 81003; 85027; 86593; 93005; 93010

== ENCOUNTER 2018-03-15 21:04 | Emergency (ER) | payer OTHER ==
[2018-03-15 21:22] VITALS: BMI 41.1
--- NOTE | 2018-03-15 21:35 | PDOC ---
History of Present Illness - General Chief Complaint: Pain Stated Complaint: ABDOMINAL PAIN Past History - Past Medical History Allergies/Adverse Reactions: Allergies Allergy/AdvReac Type Severity Reaction Status Date / Time No Known Drug Allergies Allergy Unknown Verified 03/15/18 21:22 lactose AdvReac Unknown LACTOSE Verified 03/15/18 21:22 INTOLERANCE Home Medications: Ambulatory Orders Albuterol Sulfate Inhaler - [Ventolin Hfa Inhaler -] 2 inh PO Q4H PRN 08/22/17 Furosemide [Lasix -] 40 mg PO DAILY 08/26/17 Anemia: Yes (NO MEDCATION) Asthma: Yes (ON ALBUTEROL INHALER) Cancer: No Cardiac Disorders: No CVA: No COPD: No CHF: No Dementia: No Diabetes: No GI Disorders: Yes (GI bleeding) Disorders: No HTN: Yes (ON MED,NO COMPLIANCE) Hypercholesterolemia: No Kidney Stones: No Liver Disease: No Seizures: Yes (alcohol related-last episode was in 2011) Thyroid Disease: No - Surgical History Abdominal Surgery: No Appendectomy: No Cardiac Surgery: No Cholecystectomy: No Lung Surgery: No Neurologic Surgery: No Orthopedic Surgery: No - Reproductive History Testicular Surgery: No - Suicide/Smoking/Psychosocial Hx Smoking History: Unknown if ever smoked Have you smoked in the past 12 months: No Number of Cigarettes Smoked Daily: 20 Cigars Per Day: 0 Information on smoking cessation initiated: No 'Breaking Loose' booklet given: 08/22/17 Hx Alcohol Use: No Drug/Substance Use Hx: No Substance Use Type: Alcohol (Started drinking alcohol at age 13, consumes 2 pints of vodka/gui & a 6pk of beer daily. Last drank on 08/14/17), Marijuana ( Started smoking marijuana at age 13, consumes $10 worth daily. Last smoked on ) Hx Substance Use Treatment: Yes (4 previous inpt detox &b2 inpt rehab admissions @ [facility]) *Physical Exam - Vital Signs Last Vital Signs Temp Pulse Resp BP Pulse Ox 97.6 F 84 20 146/98 97 03/15/18 21:14 03/15/18 21:14 03/15/18 21:14 03/15/18 21:14 03/15/18 21:14 *DC/Admit/Observation/Transfer - Discharge Dispostion Condition at time of disposition: Fair - Referrals Referrals: ON STAFF,NOT [Primary Care Provider] - - Patient Instructions - Post Discharge Activity
--- NOTE | 2018-03-15 21:55 | PDOC ---
History of Present Illness <Sherie Craft - Last Filed: 03/16/18 03:15> - General History Source: Patient Exam Limitations: No Limitations - History of Present Illness Initial Comments: 03/15/18 21:51 Patient is a 53-year-old male history of alcohol abuse, depression, drug abuse, GI bleed here with complaints of vomiting blood today. Patient states that he was in [place] yesterday, treated and released went out drinking today (6 bottles of blackberry flavored gui). PMD: does not remember name PMHX: as above PSOCHX: drinks daily, (+) MJ ALL: NKDA GENERAL/CONSTITUTIONAL: [No fever or chills. No weakness. No weight change.] HEAD, EYES, EARS, NOSE AND THROAT: [No change in vision. No ear pain or discharge. No sore throat.] CARDIOVASCULAR: [No chest pain or shortness of breath.] RESPIRATORY: [No cough, wheezing, or hemoptysis.] GASTROINTESTINAL: (+) nausea, vomiting, diarrhea or constipation. No rectal bleeding.] GENITOURINARY: [No dysuria, frequency, or change in urination.] MUSCULOSKELETAL: [No joint or muscle swelling or pain. No neck or back pain.] SKIN AND BREASTS: [No rash or easy bruising.] NEUROLOGIC: [No headache, vertigo, loss of consciousness, or loss of sensation.] PSYCHIATRIC: (+) depression or anxiety.] ENDOCRINE: [No increased thirst. No abnormal weight change.] HEMATOLOGIC/LYMPHATIC: [No anemia, easy bleeding, or history of blood clots.] ALLERGIC/IMMUNOLOGIC: [No hives or skin allergy. No latex allergy.] GENERAL: [The patient is awake, alert, and fully oriented, in no acute distress , AOB] HEAD: [Normal with no signs of trauma.] EYES: [Pupils equal, round and reactive to light, extraocular movements intact, sclera anicteric, conjunctiva clear.] ENT: [Ears normal, nares patent, oropharynx clear without exudates. Moist mucous membranes.] NECK: [Normal range of motion, supple without lymphadenopathy, JVD, or masses.] LUNGS: [Breath sounds equal, clear to auscultation bilaterally. No wheezes, and no crackles.] HEART: [Regular rate and rhythm, normal S1 and S2 without murmur, rub.] ABDOMEN: [Soft, nontender, normoactive bowel sounds. No guarding, no rebound. No masses.] EXTREMITIES: [Normal range of motion, no edema. No clubbing or cyanosis. No cords, erythema, or tenderness.] NEUROLOGICAL: [Cranial nerves II through XII grossly intact. Normal speech, normal gait.] PSYCH: [Normal mood, normal affect.] SKIN: [Warm, Dry, normal turgor, no rashes or lesions noted, mild edema lower ext.] <Clinton Burnham - Last Filed: 03/16/18 03:20> - General Chief Complaint: Pain Stated Complaint: ABDOMINAL PAIN Past History <Sherie Craft - Last Filed: 03/16/18 03:15> - Past Medical History Anemia: Yes (NO MEDCATION) Asthma: Yes (ON ALBUTEROL INHALER) Cancer: No Cardiac Disorders: No CVA: No COPD: No CHF: No Dementia: No Diabetes: No GI Disorders: Yes (GI bleeding) Disorders: No HTN: Yes (ON MED,NO COMPLIANCE) Hypercholesterolemia: No Kidney Stones: No Liver Disease: No Seizures: Yes (alcohol related-last episode was in 2011) Thyroid Disease: No - Surgical History Abdominal Surgery: No Appendectomy: No Cardiac Surgery: No Cholecystectomy: No Lung Surgery: No Neurologic Surgery: No Orthopedic Surgery: No - Reproductive History Testicular Surgery: No - Suicide/Smoking/Psychosocial Hx Smoking History: Unknown if ever smoked Have you smoked in the past 12 months: No Number of Cigarettes Smoked Daily: 20 Cigars Per Day: 0 Information on smoking cessation initiated: No 'Breaking Loose' booklet given: 08/22/17 Hx Alcohol Use: No Drug/Substance Use Hx: No Substance Use Type: Alcohol (Started drinking alcohol at age 13, consumes 2 pints of vodka/gui & a 6pk of beer daily. Last drank on 08/14/17), Marijuana ( Started smoking marijuana at age 13, consumes $10 worth daily. Last smoked on ) Hx Substance Use Treatment: Yes (4 previous inpt detox &b2 inpt rehab admissions @ [facility]) <Clinton Burnham - Last Filed: 03/16/18 03:20> - Past Medical History Allergies/Adverse Reactions: Allergies Allergy/AdvReac Type Severity Reaction Status Date / Time No Known Drug Allergies Allergy Unknown Verified 03/15/18 21:22 lactose AdvReac Unknown LACTOSE Verified 03/15/18 21:22 INTOLERANCE Home Medications: Ambulatory Orders Albuterol Sulfate Inhaler - [Ventolin Hfa Inhaler -] 2 inh PO Q4H PRN 08/22/17 Furosemide [Lasix -] 40 mg PO DAILY 08/26/17 *Physical Exam - Vital Signs Last Vital Signs Temp Pulse Resp BP Pulse Ox 98.2 F 66 20 88/45 97 03/15/18 21:47 03/15/18 21:47 03/15/18 21:14 03/15/18 21:47 03/15/18 21:47 <Sherie Craft - Last Filed: 03/16/18 03:15> - Vital Signs Last Vital Signs Temp Pulse Resp BP Pulse Ox 97.6 F 84 20 146/98 97 03/15/18 21:14 03/15/18 21:14 03/15/18 21:14 03/15/18 21:14 03/15/18 21:14 <Clinton Burnham - Last Filed: 03/16/18 03:20> ED Treatment Course - LABORATORY CBC & Chemistry Diagram: 03/15/18 21:50 03/15/18 21:50 - ADDITIONAL ORDERS Additional order review: Laboratory Results 03/15/18 03/15/18 03/15/18 23:23 21:50 21:50 PT with INR INR PTT (Actin FS) Sodium 139 Potassium 3.1 L D Chloride 100 Carbon Dioxide 26 Anion Gap 13 BUN 29 H D Creatinine 2.0 H D Creat Clearance w eGFR 34.86 Random Glucose 117 H D Calcium 8.4 L Total Bilirubin 0.7 AST 35 ALT 37 Alkaline Phosphatase 73 Total Protein 7.3 Albumin 4.1 Lipase 318 Stool Occult Blood Negative Alcohol, Quantitative 227.77 H* 03/15/18 21:50 PT with INR 12.20 INR 1.08 PTT (Actin FS) 32.7 Sodium Potassium Chloride Carbon Dioxide Anion Gap BUN Creatinine Creat Clearance w eGFR Random Glucose Calcium Total Bilirubin AST ALT Alkaline Phosphatase Total Protein Albumin Lipase Stool Occult Blood Alcohol, Quantitative 03/15/18 21:50 RBC 4.98 D MCV 82.2 MCHC 32.7 RDW 18.6 H MPV 8.9 - Medications Given in the ED: ED Medications Discontinued Medications Generic Name Dose Route Start Last Admin Trade Name Arlette PRN Reason Stop Dose Admin Potassium Chloride 10 meq in 100 mls @ 100 mls/hr 03/15/18 23:45 03/16/18 00: 57 Potassium Chloride 10 Meq Premix Ivpb - IVPB 03/16/18 01:44 Not Given Q60M [facility] Ondansetron HCl 4 mg 03/16/18 00:38 03/16/18 00:28 Zofran Injection IVPUSH 03/16/18 00:39 4 mg ONCE ONE Administration Potassium Chloride 40 meq 03/16/18 00:37 03/16/18 00:37 K-Dur - PO 03/16/18 00:38 40 meq ONCE ONE Administration Sodium Chloride 1,000 ml 03/15/18 23:13 03/15/18 23:34 Normal Saline - IV 03/15/18 23:14 1,000 ml ONCE ONE Administration <Sherie Craft - Last Filed: 03/16/18 03:15> - LABORATORY CBC & Chemistry Diagram: 03/15/18 21:50 03/15/18 21:50 <Clinton Burnham - Last Filed: 03/16/18 03:20> Medical Decision Making - Medical Decision Making 03/15/18 21:51 Patient is a 53-year-old male history of alcohol abuse, depression, drug abuse, GI bleed here with complaints of vomiting blood today. Patient was sleeping and noted to have an O2 sats in the 80s was put on oxygen 2 L nasal cannula with improvement up to 97%. Noted to have a blood pressure in the 70s systolic given bolus normal saline. Labs revealed noted potassium 3.1 we will replace Patient feeling nauseous and spitting up, no blood noted just saliva. Given Zofran 4 mg IV. 03/16/18 03:18 Patient requesting detox, discussed with [address] [place] [facility] [address] Craft. Patient is medically cleared and stable for detox. <Clinton Burnham - Last Filed: 03/16/18 03:20> *DC/Admit/Observation/Transfer - Discharge Dispostion Decision to Admit order: No <Sherie Craft - Last Filed: 03/16/18 03:15> <Clinton Burnham - Last Filed: 03/16/18 03:20> Diagnosis at time of Disposition: Alcohol abuse - Discharge Dispostion Disposition: HOME Condition at time of disposition: Fair - Referrals Referrals: ON STAFF,NOT [Primary Care Provider] - - Patient Instructions Printed Discharge Instructions: Alcohol and Stress: There are Safer Ways to [place] - Post Discharge Activity
[2018-03-15 22:39] LABS: HEMATOCRIT 40.9 % (35.4-49); HEMOGLOBIN 13.4 GM/dL (11.7-16.9); MCH 26.9 pg (25.7-33.7); MCHC 32.7 g/dl (32.0-35.9); MEAN CELL VOLUME 82.2 fl (80-96); MEAN PLT VOLUME 8.9 fl (7.5-11.1); PLATELET COUNT 169 K/MM3 (134-434); RBC 4.98 M/mm3 (4.00-5.60); RDW 18.6 % (11.9-15.9); WHITE BLOOD COUNT 12.1 K/mm3 (4.0-10.0)
[2018-03-15 22:43] LABS: INR 1.08 (0.82-1.09); PROTHROMBIN TIME (PATIENT) 12.2 SEC (9.7-13.0)
[2018-03-15 22:45] LABS: ACTIVATED PTT 32.7 SECONDS (26.9-34.4)
[2018-03-15 23:02] LABS: ALBUMIN 4.1 g/dl (3.4-5.0); ANION GAP 13 (8-16); BLOOD UREA NITROGEN 29 mg/dL (7-18); CALCIUM 8.4 mg/dL (8.5-10.1); CHLORIDE 100 mmol/L (98-107); CO2 26 mmol/L (21-32); GLUCOSE,RANDOM 117 mg/dL (74-106); POTASSIUM 3.1 mmol/L (3.5-5.1); SGOT/AST 35 U/L (15-37); SGPT/ALT 37 U/L (12-78); SODIUM 139 mmol/L (136-145)
[2018-03-15 23:03] LABS: ALK PHOS 73 U/L (45-117); BILIRUBIN,TOTAL 0.7 mg/dL (0.2-1.0); TOT PROT 7.3 g/dl (6.4-8.2)
[2018-03-15 23:04] LABS: LIPASE 318 U/L (73-393)
[2018-03-15] MEDS ORDERED: SODIUM CHLORIDE 0.9% 500 ML INFUS.BAG IV ONE (23:13)
[2018-03-15 23:38] VITALS: PULSE 66; TEMP 98.2
[2018-03-15] MEDS ORDERED: KCL 10 MEQ IVPB 10 MEQ/100 ML INFUS.BAG IVPB ONE (23:55)
[2018-03-16] MEDS ORDERED: ONDANSETRON 4 MG/2 ML VIAL ONE (00:30)
[2018-03-16] MEDS ORDERED: POTASSIUM CHLORIDE TABS 20 MEQ TABLET.ER (FP) PO ONE ×2 (00:37→00:39)
[2018-03-16] MEDS ORDERED: ONDANSETRON 4 MG/2 ML VIAL IVPUSH ONE (00:38)
[2018-03-16] MEDS: KCL 10 MEQ IVPB 10 MEQ/100 ML INFUS.BAG IVPB SCH ×2 (00:57)
[2018-03-16] MEDS ORDERED: MAGNESIUM SULF 50% (8.12 MEQ/2 ML-1 GM VIAL) IVPB ONE (01:24)
[2018-03-16 03:31] VITALS: BP 109/62
[2018-03-16] MEDS ORDERED: ONDANSETRON 4 MG TABLET PO ONE (04:26)
== END 2018-03-16 04:40 | disposition home or self-care (01) ==
LOC: SUPCPDRO 21:04 → JER 21:04
PROC: 3E033GC Introduction of Other Therapeutic Substance into Peripheral Vein, Percutaneous Approach (ICD-10-PCS; principal; 2018-03-15)
DX: F10.10 Alcohol abuse, uncomplicated (principal); D64.9 Anemia, unspecified; J45.909 Unspecified asthma, uncomplicated; I10 Essential (primary) hypertension; Z91.14 Patient's other noncompliance with medication regimen; Z86.69 Personal history of other diseases of the nervous system and sense organs; Z87.19 Personal history of other diseases of the digestive system
CPT/HCPCS: 36415; 80053; 80307; 82272; 83690; 85027; 85610; 85730; 96374; 99282-25

== ENCOUNTER 2018-03-16 06:14 | Inpatient (IN) | payer OTHER ==
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
[2018-03-16] MEDS ORDERED: IBUPROFEN 400 MG TABLET (FP) PO PRN (06:58)
[2018-03-16] MEDS ORDERED: hydrOXYzine PAMOATE 50 MG CAPSULE (FP) PO PRN (06:58)
[2018-03-16] MEDS ORDERED: MAGNESIUM HYDROX 2400MG/30ML ORAL SUSPENSION 30 ML CUP PO PRN (06:58)
[2018-03-16] MEDS ORDERED: MAGNESIUM CITRATE 300 ML BOTTLE PO PRN (06:58)
[2018-03-16] MEDS ORDERED: LOPERAMIDE HCL 2 MG CAPSULE PO PRN (06:58)
[2018-03-16] MEDS ORDERED: P-EPHED 60MG/TRIPROLIDI 2.5MG TABLET PO PRN (06:58)
[2018-03-16] MEDS ORDERED: NICOTINE POLACRILEX 2 MG GUM BC PRN (06:58)
[2018-03-16] MEDS ORDERED: chlordiazePOXIDE HCL 25 MG CAPSULE PO PRN (06:58)
[2018-03-16] MEDS ORDERED: guaiFENesin/D-METHORPHAN HB 10 ML UNIT-DOSE CUPS PO PRN (06:58)
[2018-03-16] MEDS ORDERED: MENTHOL/PHENOL 1 EACH UD MM PRN (06:58)
[2018-03-16] MEDS ORDERED: ACETAMINOPHEN 325 MG TABLET (FP) PO PRN (06:58)
[2018-03-16] MEDS ORDERED: MAG HYDROX/AL HYDROX/SIMETH 30 ML UNIT-DOSE CUP PO PRN (06:58)
[2018-03-16] MEDS ORDERED: TRIMETHOBENZAMIDE HCL 200MG/2ML INJ IM ONE (07:07)
[2018-03-16] MEDS ORDERED: ONDANSETRON *ODT* 4 MG TABLET SL PRN (07:08)
[2018-03-16 07:14] VITALS: BMI 38.7
--- NOTE | 2018-03-16 07:36 | PN ---
S Progress Note Note: EKG REVIEWED NSR ST/T WAVE ABN, CONSIDER ANTERIOR ISCHEMIA ABN EKG NOTED ON PREVIOUS EKG'S CLIENT DENIES C.P. AT THIS TIME VSS ACUTE ETOH WITHDRAWALW/ DRY HEAVING CONT DETOX ATIVAN 1MG IM STAT NOW TIGAN 200MG IM STAT CONT TO MONITOR CLOSELY
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
[2018-03-16] MEDS: NICOTINE 21 MG/24 HOURS TOPICAL PATCH TD SCH (10:08)
[2018-03-16] MEDS: PRENATAL VITAMINS W/ FOLIC ACID TABLET (FP) PO SCH (10:08)
--- NOTE | 2018-03-16 11:25 | EKG ---
Test Reason : Blood Pressure : / mmHG Vent. Rate : 071 BPM Atrial Rate : 071 BPM P-R Int : 148 ms QRS Dur : 092 ms QT Int : 414 ms P-R-T Axes : 053 057 076 degrees QTc Int : 449 ms NORMAL SINUS RHYTHM WITH SINUS ARRHYTHMIA ABNORMAL ECG WHEN COMPARED WITH ECG OF 23-AUG-2017 06:42, T WAVE VARIATION Confirmed by HARI NO MD ([id number]) on 03/16/2018 11:25:36 AM Referred By: Confirmed By:HARI NO MD
[2018-03-16] MEDS ORDERED: PNEUMOC 13-VAL CONJ-DIP CRM/PF 0.5 ML DISP.SYRIN IM ONE (12:00)
[2018-03-16] MEDS: chlordiazePOXIDE HCL 25 MG CAPSULE PO SCH ×3 (12:41→22:08)
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
[2018-03-16] MEDS ORDERED: MELATONIN 5 MG TABLETS PO PRN (22:00)
[2018-03-16] MEDS: THIAMINE HCL 100 MG TABLET (FP) PO SCH (22:08)
[2018-03-16 23:33] LABS: URINE APPEARANCE TURBID; URINE BILIRUBIN NEGATIVE (<2.0 mg/dL); URINE BLOOD NEGATIVE (NEGATIVE); URINE COLOR YELLOW; URINE GLUCOSE (UA) NEGATIVE (NEGATIVE); URINE KETONE NEGATIVE (NEGATIVE); URINE LEUK ESTERASE NEGATIVE (NEGATIVE); URINE NITRITE NEGATIVE (NEGATIVE); URINE PROTEIN NEGATIVE (NEGATIVE)
[2018-03-17] MEDS: chlordiazePOXIDE HCL 25 MG CAPSULE PO SCH ×4 (05:11→22:10)
[2018-03-17] MEDS: PRENATAL VITAMINS W/ FOLIC ACID TABLET (FP) PO SCH (10:05)
[2018-03-17] MEDS: NICOTINE 21 MG/24 HOURS TOPICAL PATCH TD SCH (10:05)
--- NOTE | 2018-03-17 12:24 | PN ---
[facility] CIWA - CIWA Score Nausea/Vomitin-No Nausea/No Vomiting Muscle Tremors: 4-Moderate,w/Arms Extend Anxiety: 4-Mod. Anxious/Guarded Agitation: 4-Moderately Restless Paroxysmal Sweats: 1-Minimal Palms Moist Orientation: 0-Oriented Tacttile Disturbances: 0-None Auditory Disturbances: 0-None Visual Disturbances: 0-None Headache: 0-None Present CIWA-Ar Total Score: 13 S Progress Note (SOAP) Subjective: ANXIETY,TREMORS,SWEATS/CHILLS,FATIGUE,LOSS OF APPETITE. Objective: 03/17/18 12:24 Vital Signs 03/17/18 03/17/18 05:46 09:05 Temperature 98.1 F 97.3 F L Pulse Rate 62 56 L Respiratory 20 16 Rate Blood Pressure 119/69 115/71 Laboratory Tests 03/16/18 15:23 Urine Color Yellow Urine Appearance Turbid Urine pH 6.0 Ur Specific [place] 1.020 Urine Protein Negative Urine Glucose (UA) Negative Urine Ketones Negative Urine Blood Negative Urine Nitrite Negative Urine Bilirubin Negative Urine Urobilinogen 2.0 Ur Leukocyte Esterase Negative Assessment: 03/17/18 12:24 WITHDRAWAL SX Plan: CONTINUE DETOX LABS TO BE DONE IN AM INCREASE PO FLUIDS
[2018-03-17] MEDS: THIAMINE HCL 100 MG TABLET (FP) PO SCH (22:10)
[2018-03-17] MEDS: ZOLPIDEM TARTRATE 10 MG TABLET (PARK CARE ONLY) PO PRN (22:10)
[2018-03-18] MEDS: chlordiazePOXIDE HCL 25 MG CAPSULE PO SCH (05:06)
[2018-03-18] MEDS ORDERED: MULTIVIT-MINERALS ORAL LIQUID PO SCH (10:00)
[2018-03-18] MEDS: chlordiazePOXIDE 5 MG CAPSULE PO SCH ×3 (10:09→22:18)
[2018-03-18] MEDS: NICOTINE 21 MG/24 HOURS TOPICAL PATCH TD SCH (10:09)
[2018-03-18 10:21] LABS: HEMATOCRIT 35.7 % (35.4-49); MCH 27.5 pg (25.7-33.7); MCHC 33.7 g/dl (32.0-35.9); MEAN CELL VOLUME 81.6 fl (80-96); MEAN PLT VOLUME 8.9 fl (7.5-11.1); PLATELET COUNT 71 K/MM3 (134-434); RBC 4.37 M/mm3 (4.00-5.60); WHITE BLOOD COUNT 5.1 K/mm3 (4.0-10.0)
[2018-03-18 10:49] LABS: CHLORIDE 104 mmol/L (98-107); POTASSIUM 3.6 mmol/L (3.5-5.1); SODIUM 141 mmol/L (136-145)
[2018-03-18 11:05] LABS: ALBUMIN 3.3 g/dl (3.4-5.0); ALK PHOS 67 U/L (45-117); ANION GAP 6 (8-16); BLOOD UREA NITROGEN 19 mg/dL (7-18); CALCIUM 8.5 mg/dL (8.5-10.1); CO2 31 mmol/L (21-32); CREATININE 0.6 mg/dL (0.7-1.3); GLUCOSE,RANDOM 83 mg/dL (74-106); SGOT/AST 27 U/L (15-37); SGPT/ALT 33 U/L (12-78); TOT PROT 6.1 g/dl (6.4-8.2)
--- NOTE | 2018-03-18 14:02 | PN ---
S CIWA - CIWA Score Nausea/Vomitin-No Nausea/No Vomiting Muscle Tremors: 4-Moderate,w/Arms Extend Anxiety: 4-Mod. Anxious/Guarded Agitation: 4-Moderately Restless Paroxysmal Sweats: 1-Minimal Palms Moist Orientation: 0-Oriented Tacttile Disturbances: 0-None Auditory Disturbances: 0-None Visual Disturbances: 0-None Headache: 0-None Present CIWA-Ar Total Score: 13 BHS Progress Note (SOAP) Subjective: ANXIETY,SWEATS,CHILLS, SLIGHT TREMORS. DENIES FURTHER NAUSEA OR VOMITING. Objective: 03/18/18 14:01 Vital Signs 03/18/18 03/18/18 03/18/18 06:35 09:16 13:54 Temperature 96.6 F L 96.6 F L 97.6 F Pulse Rate 60 64 73 Respiratory 18 18 18 Rate Blood Pressure 140/81 144/91 93/62 Laboratory Tests 03/16/18 03/18/18 03/18/18 15:23 07:30 07:30 WBC 5.1 D RBC 4.37 Hgb 12.0 D Hct 35.7 MCV 81.6 MCH 27.5 MCHC 33.7 RDW 18.0 H Plt Count 71 L D MPV 8.9 Sodium 141 Potassium 3.6 Chloride 104 Carbon Dioxide 31 Anion Gap 6 L BUN 19 H D Creatinine 0.6 L D Creat Clearance w eGFR > 60 Random Glucose 83 D Calcium 8.5 Total Bilirubin 1.0 D AST 27 D ALT 33 Alkaline Phosphatase 67 Total Protein 6.1 L Albumin 3.3 L Urine Color Yellow Urine Appearance Turbid Urine pH 6.0 Ur Specific [place] 1.020 Urine Protein Negative Urine Glucose (UA) Negative Urine Ketones Negative Urine Blood Negative Urine Nitrite Negative Urine Bilirubin Negative Urine Urobilinogen 2.0 Ur Leukocyte Esterase Negative RPR Titer 03/18/18 07:30 WBC RBC Hgb Hct MCV MCH MCHC RDW Plt Count MPV Sodium Potassium Chloride Carbon Dioxide Anion Gap BUN Creatinine Creat Clearance w eGFR Random Glucose Calcium Total Bilirubin AST ALT Alkaline Phosphatase Total Protein Albumin Urine Color Urine Appearance Urine pH Ur Specific [place] Urine Protein Urine Glucose (UA) Urine Ketones Urine Blood Urine Nitrite Urine Bilirubin Urine Urobilinogen Ur Leukocyte Esterase RPR Titer Nonreactive Assessment: 03/18/18 14:02 WITHDRAWAL SX Plan: CONTINUE DETOX
[2018-03-18] MEDS: MULTIVITAMINS (DAILY MVI) TABLET (FP) PO SCH (15:19)
[2018-03-18] MEDS: PYRIDOXINE HCL (B-6) 50 MG TABLET (FP) PO SCH (15:19)
[2018-03-18] MEDS: FOLIC ACID 1 MG TABLET (FP) PO SCH (15:19)
[2018-03-18] MEDS: ASCORBIC ACID 500 MG TABLET (FP) PO SCH (15:19)
[2018-03-18] MEDS: THIAMINE HCL 100 MG TABLET (FP) PO SCH (22:18)
[2018-03-18] MEDS: ZOLPIDEM TARTRATE 10 MG TABLET (PARK CARE ONLY) PO PRN (22:18)
[2018-03-19] MEDS: chlordiazePOXIDE 5 MG CAPSULE PO SCH (05:29)
[2018-03-19] MEDS: ASCORBIC ACID 500 MG TABLET (FP) PO SCH (10:08)
[2018-03-19] MEDS: chlordiazePOXIDE HCL 10 MG CAPSULE PO SCH ×3 (10:08→22:25)
[2018-03-19] MEDS: FOLIC ACID 1 MG TABLET (FP) PO SCH (10:09)
[2018-03-19] MEDS: NICOTINE 21 MG/24 HOURS TOPICAL PATCH TD SCH (10:09)
[2018-03-19] MEDS: MULTIVITAMINS (DAILY MVI) TABLET (FP) PO SCH (10:09)
[2018-03-19] MEDS: PYRIDOXINE HCL (B-6) 50 MG TABLET (FP) PO SCH (10:10)
[2018-03-19] MEDS: THIAMINE HCL 100 MG TABLET (FP) PO SCH ×2 (10:11→22:25)
--- NOTE | 2018-03-19 13:49 | PN ---
BHS Progress Note (SOAP) Subjective: REPORTS DECREASED ANXIETY,TREMORS. ALERT O X 3. NO N/V/D REPORTED. Objective: 03/19/18 13:49 Vital Signs 03/19/18 03/19/18 03/19/18 06:10 06:30 09:50 Temperature 96.7 F L 97.1 F L Pulse Rate 67 73 Respiratory 20 18 16 Rate Blood Pressure 120/83 113/81 Laboratory Tests 03/16/18 03/18/18 03/18/18 15:23 07:30 07:30 WBC 5.1 D RBC 4.37 Hgb 12.0 D Hct 35.7 MCV 81.6 MCH 27.5 MCHC 33.7 RDW 18.0 H Plt Count 71 L D MPV 8.9 Sodium Potassium Chloride Carbon Dioxide Anion Gap BUN Creatinine Creat Clearance w eGFR Random Glucose Calcium Total Bilirubin AST ALT Alkaline Phosphatase Total Protein Albumin Urine Color Yellow Urine Appearance Turbid Urine pH 6.0 Ur Specific [place] 1.020 Urine Protein Negative Urine Glucose (UA) Negative Urine Ketones Negative Urine Blood Negative Urine Nitrite Negative Urine Bilirubin Negative Urine Urobilinogen 2.0 Ur Leukocyte Esterase Negative RPR Titer HIV 1&2 Antibody Screen Negative HIV P24 Antigen Negative 03/18/18 03/18/18 07:30 07:30 WBC RBC Hgb Hct MCV MCH MCHC RDW Plt Count MPV Sodium 141 Potassium 3.6 Chloride 104 Carbon Dioxide 31 Anion Gap 6 L BUN 19 H D Creatinine 0.6 L D Creat Clearance w eGFR > 60 Random Glucose 83 D Calcium 8.5 Total Bilirubin 1.0 D AST 27 D ALT 33 Alkaline Phosphatase 67 Total Protein 6.1 L Albumin 3.3 L Urine Color Urine Appearance Urine pH Ur Specific [place] Urine Protein Urine Glucose (UA) Urine Ketones Urine Blood Urine Nitrite Urine Bilirubin Urine Urobilinogen Ur Leukocyte Esterase RPR Titer Nonreactive HIV 1&2 Antibody Screen HIV P24 Antigen Assessment: 03/19/18 13:49 WITHDRAWAL SX Plan: CONTINUE DETOX
[2018-03-19] MEDS: ZOLPIDEM TARTRATE 10 MG TABLET (PARK CARE ONLY) PO PRN (22:26)
[2018-03-20] MEDS: chlordiazePOXIDE HCL 10 MG CAPSULE PO SCH (05:03)
[2018-03-20 09:45] VITALS: BP 111/78; PULSE 80; TEMP 96.3
[2018-03-20] MEDS: NICOTINE 21 MG/24 HOURS TOPICAL PATCH TD SCH (10:16)
[2018-03-20 10:21] LABS: HEMATOCRIT 38.2 % (35.4-49); HEMOGLOBIN 12.5 GM/dL (11.7-16.9); MCH 27.2 pg (25.7-33.7); MCHC 32.7 g/dl (32.0-35.9); MEAN CELL VOLUME 83.1 fl (80-96); MEAN PLT VOLUME 9.6 fl (7.5-11.1); PLATELET COUNT 76 K/MM3 (134-434); RDW 18.3 % (11.9-15.9); WHITE BLOOD COUNT 5.7 K/mm3 (4.0-10.0)
[2018-03-20 10:41] LABS: CHLORIDE 102 mmol/L (98-107); POTASSIUM 4.2 mmol/L (3.5-5.1); SODIUM 137 mmol/L (136-145)
[2018-03-20 11:03] LABS: ALBUMIN 3.8 g/dl (3.4-5.0); ALK PHOS 71 U/L (45-117); ANION GAP 6 (8-16); BILIRUBIN,TOTAL 0.7 mg/dL (0.2-1.0); BLOOD UREA NITROGEN 18 mg/dL (7-18); CALCIUM 9.1 mg/dL (8.5-10.1); CO2 29 mmol/L (21-32); CREATININE 0.6 mg/dL (0.7-1.3); GLUCOSE,RANDOM 87 mg/dL (74-106); SGOT/AST 24 U/L (15-37); SGPT/ALT 33 U/L (12-78); TOT PROT 6.7 g/dl (6.4-8.2)
[2018-03-20] MEDS: ASCORBIC ACID 500 MG TABLET (FP) PO SCH (11:40)
[2018-03-20] MEDS: THIAMINE HCL 100 MG TABLET (FP) PO SCH (11:40)
[2018-03-20] MEDS: MULTIVITAMINS (DAILY MVI) TABLET (FP) PO SCH (11:40)
[2018-03-20] MEDS: FOLIC ACID 1 MG TABLET (FP) PO SCH (11:41)
[2018-03-20] MEDS: PYRIDOXINE HCL (B-6) 50 MG TABLET (FP) PO SCH (11:41)
--- NOTE | 2018-03-20 12:55 | PN ---
S Progress Note (SOAP) Subjective: ALERT O X 3. DETOX COMPLETED. REFERRED TO [facility] TODAY. Objective: 03/20/18 12:54 Vital Signs 03/20/18 03/20/18 06:30 09:44 Temperature 97.1 F L 96.3 F L Pulse Rate 67 80 Respiratory 18 20 Rate Blood Pressure 133/77 111/78 Laboratory Tests 03/16/18 03/18/18 03/18/18 15:23 07:30 07:30 WBC 5.1 D RBC 4.37 Hgb 12.0 D Hct 35.7 MCV 81.6 MCH 27.5 MCHC 33.7 RDW 18.0 H Plt Count 71 L D MPV 8.9 Sodium Potassium Chloride Carbon Dioxide Anion Gap BUN Creatinine Creat Clearance w eGFR Random Glucose Calcium Total Bilirubin AST ALT Alkaline Phosphatase Total Protein Albumin Urine Color Yellow Urine Appearance Turbid Urine pH 6.0 Ur Specific [place] 1.020 Urine Protein Negative Urine Glucose (UA) Negative Urine Ketones Negative Urine Blood Negative Urine Nitrite Negative Urine Bilirubin Negative Urine Urobilinogen 2.0 Ur Leukocyte Esterase Negative RPR Titer HIV 1&2 Antibody Screen Negative HIV P24 Antigen Negative 03/18/18 03/18/18 03/20/18 07:30 07:30 07:30 WBC 5.7 RBC 4.60 Hgb 12.5 Hct 38.2 MCV 83.1 MCH 27.2 MCHC 32.7 RDW 18.3 H Plt Count 76 L MPV 9.6 Sodium 141 Potassium 3.6 Chloride 104 Carbon Dioxide 31 Anion Gap 6 L BUN 19 H D Creatinine 0.6 L D Creat Clearance w eGFR > 60 Random Glucose 83 D Calcium 8.5 Total Bilirubin 1.0 D AST 27 D ALT 33 Alkaline Phosphatase 67 Total Protein 6.1 L Albumin 3.3 L Urine Color Urine Appearance Urine pH Ur Specific [place] Urine Protein Urine Glucose (UA) Urine Ketones Urine Blood Urine Nitrite Urine Bilirubin Urine Urobilinogen Ur Leukocyte Esterase RPR Titer Nonreactive HIV 1&2 Antibody Screen HIV P24 Antigen 03/20/18 07:30 WBC RBC Hgb Hct MCV MCH MCHC RDW Plt Count MPV Sodium 137 Potassium 4.2 Chloride 102 Carbon Dioxide 29 Anion Gap 6 L BUN 18 Creatinine 0.6 L Creat Clearance w eGFR > 60 Random Glucose 87 Calcium 9.1 Total Bilirubin 0.7 D AST 24 ALT 33 Alkaline Phosphatase 71 Total Protein 6.7 Albumin 3.8 Urine Color Urine Appearance Urine pH Ur Specific [place] Urine Protein Urine Glucose (UA) Urine Ketones Urine Blood Urine Nitrite Urine Bilirubin Urine Urobilinogen Ur Leukocyte Esterase RPR Titer HIV 1&2 Antibody Screen HIV P24 Antigen Assessment: 03/20/18 12:55 MEDICALLY STABLE Plan: D/C PT TODAY TO REHAB
--- NOTE | 2018-03-20 12:58 | DS ---
[facility] Detox Discharge Summary Admission Date: 03/16/18 Discharge Date: 03/20/18 - History Present History: Alcohol Dependence Additional Comments: DETOX COMPLETED. ALERT O X 3. NAD, Pertinent Past History: PLEASE SEE DX BELOW - Physical Exam Results Vital Signs: Vital Signs Temperature 96.3 F L 03/20/18 09:44 Pulse Rate 80 03/20/18 09:44 Respiratory Rate 20 03/20/18 09:44 Blood Pressure 111/78 03/20/18 09:44 O2 Sat by Pulse Oximetry (%) Pertinent Admission Physical Exam Findings: WITHDRAWAL SX Laboratory Tests 03/16/18 03/18/18 03/18/18 15:23 07:30 07:30 WBC 5.1 D RBC 4.37 Hgb 12.0 D Hct 35.7 MCV 81.6 MCH 27.5 MCHC 33.7 RDW 18.0 H Plt Count 71 L D MPV 8.9 Sodium Potassium Chloride Carbon Dioxide Anion Gap BUN Creatinine Creat Clearance w eGFR Random Glucose Calcium Total Bilirubin AST ALT Alkaline Phosphatase Total Protein Albumin Urine Color Yellow Urine Appearance Turbid Urine pH 6.0 Ur Specific [place] 1.020 Urine Protein Negative Urine Glucose (UA) Negative Urine Ketones Negative Urine Blood Negative Urine Nitrite Negative Urine Bilirubin Negative Urine Urobilinogen 2.0 Ur Leukocyte Esterase Negative RPR Titer HIV 1&2 Antibody Screen Negative HIV P24 Antigen Negative 03/18/18 03/18/18 03/20/18 07:30 07:30 07:30 WBC 5.7 RBC 4.60 Hgb 12.5 Hct 38.2 MCV 83.1 MCH 27.2 MCHC 32.7 RDW 18.3 H Plt Count 76 L MPV 9.6 Sodium 141 Potassium 3.6 Chloride 104 Carbon Dioxide 31 Anion Gap 6 L BUN 19 H D Creatinine 0.6 L D Creat Clearance w eGFR > 60 Random Glucose 83 D Calcium 8.5 Total Bilirubin 1.0 D AST 27 D ALT 33 Alkaline Phosphatase 67 Total Protein 6.1 L Albumin 3.3 L Urine Color Urine Appearance Urine pH Ur Specific [place] Urine Protein Urine Glucose (UA) Urine Ketones Urine Blood Urine Nitrite Urine Bilirubin Urine Urobilinogen Ur Leukocyte Esterase RPR Titer Nonreactive HIV 1&2 Antibody Screen HIV P24 Antigen 03/20/18 07:30 WBC RBC Hgb Hct MCV MCH MCHC RDW Plt Count MPV Sodium 137 Potassium 4.2 Chloride 102 Carbon Dioxide 29 Anion Gap 6 L BUN 18 Creatinine 0.6 L Creat Clearance w eGFR > 60 Random Glucose 87 Calcium 9.1 Total Bilirubin 0.7 D AST 24 ALT 33 Alkaline Phosphatase 71 Total Protein 6.7 Albumin 3.8 Urine Color Urine Appearance Urine pH Ur Specific [place] Urine Protein Urine Glucose (UA) Urine Ketones Urine Blood Urine Nitrite Urine Bilirubin Urine Urobilinogen Ur Leukocyte Esterase RPR Titer HIV 1&2 Antibody Screen HIV P24 Antigen - Treatment Hospital Course: Detox Protocol Followed, Detoxed Safely, Responded well, Discharged Condition Good, Rehab Referral Accepted Patient has Accepted a Rehab Referral to: [facility] - Medication Discharge Medications: Ambulatory Orders Albuterol Sulfate Inhaler - [Ventolin Hfa Inhaler -] 2 inh PO Q4H PRN 08/22/17 Furosemide [Lasix -] 40 mg PO DAILY 08/26/17 - Diagnosis (1) Alcohol dependence with uncomplicated withdrawal Current Visit: Yes Status: Acute (2) Nicotine dependence Current Visit: Yes Status: Acute Qualifiers: Nicotine product type: cigarettes Substance use status: in withdrawal Qualified Code(s): F17.213 - Nicotine dependence, cigarettes, with withdrawal (3) HTN (hypertension) Current Visit: Yes Status: Chronic Qualifiers: Hypertension type: essential hypertension Qualified Code(s): I10 - Essential (primary) hypertension (4) History of esophageal varices with bleeding Current Visit: Yes Status: Chronic (5) Alcohol withdrawal seizure with delirium Current Visit: Yes Status: Suspected (6) History of GI bleed Current Visit: Yes Status: Suspected (7) Seizure due to alcohol withdrawal Current Visit: Yes Status: Suspected Qualifiers: Complication of substance-induced condition: uncomplicated Qualified Code(s ): F10.230 - Alcohol dependence with withdrawal, uncomplicated (8) s/p left inguinal herniorrhaphy Current Visit: Yes Status: Chronic (9) Cirrhosis with alcoholism Current Visit: No Status: Chronic Qualifiers: Ascites presence: unspecified Qualified Code(s): K70.30 - Alcoholic cirrhosis of liver without ascites (10) Essential hypertension Current Visit: Yes Status: Chronic (11) Seizure disorder Current Visit: Yes Status: Suspected (12) cannabis dependence Current Visit: Yes Status: Acute - AMA Did Patient Leave Against Medical Advice: No
== END 2018-03-20 13:06 | disposition home or self-care (01) | DRG 775 ==
LOC: YASAS 06:14 → Y3N 06:36
PROVIDERS: ADMIT Surgery; ATTEND Surgery
PROC: HZ2ZZZZ Detoxification Services for Substance Abuse Treatment (ICD-10-PCS; principal; 2018-03-16)
DX: F10.230 Alcohol dependence with withdrawal, uncomplicated (principal); F12.20 Cannabis dependence, uncomplicated; F17.213 Nicotine dependence, cigarettes, with withdrawal; F19.24 Other psychoactive substance dependence with psychoactive substance-induced mood disorder; F19.282 Other psychoactive substance dependence with psychoactive substance-induced sleep disorder; F32.9 Major depressive disorder, single episode, unspecified; I10 Essential (primary) hypertension; K70.30 Alcoholic cirrhosis of liver without ascites; G47.00 Insomnia, unspecified; J45.909 Unspecified asthma, uncomplicated; R94.31 Abnormal electrocardiogram [ECG] [EKG]; J20.9 Acute bronchitis, unspecified; Z86.69 Personal history of other diseases of the nervous system and sense organs; Z91.14 Patient's other noncompliance with medication regimen; Z91.011 Allergy to milk products; Z91.5 Personal history of self-harm
CPT/HCPCS: 36415; 80053; 81003; 85027; 86593; 87389; 93005; 93010

== ENCOUNTER 2019-11-30 15:55 | Inpatient (IN) | payer OTHER ==
--- NOTE | 2019-11-30 19:19 | HP ---
CIWA Score - Admission Criteria OASAS Guidelines: Admission for Medically Managed Detox: Requires at least one of the followin. CIWA greater than 12 2. Seizures within the past 24 hours 3. Delirium tremens within the past 24 hours 4. Hallucinations within the past 24 hours 5. Acute intervention needed for co occurring medical disorder 6. Acute intervention needed for co occurring psychiatric disorder 7. Severe withdrawal that cannot be handled at a lower level of care (continued vomiting, continued diarrhea, abnormal vital signs) requiring intravenous medication and/or fluids 8. Admitting History and Physical - Smoking History Smoking history: Current every day smoker Have you smoked in the past 12 months: Yes Aproximately how many cigarettes per day: 20 - Alcohol/Substance Use Hx Alcohol Use: Yes Admission ROS [facility] Chief Complaint: Seeking admission to Rehab. Allergies/Adverse Reactions: Allergies Allergy/AdvReac Type Severity Reaction Status Date / Time No Known Drug Allergies Allergy Unknown Verified 11/30/19 19:57 lactose AdvReac Unknown LACTOSE Verified 11/30/19 19:57 INTOLERANCE History of Present Illness: 54 years old male with a long history of alcohol dependence is seeking admission to Rehab. He reports that he was admitted to [facility] for 18 days for suicidal ideation and was discharged today. He denies suicidal ideation at this time. He has medical history of hypertension, anemia, GERD, cirrhosis of the liver, asthma, alcohol related seizures, esophageal varices and psych. history of depression. His last detox was in August 2019 at [facility]. His last admission at [facility] was for the period 03/16- 03/20/2018 and he reports 18 months of sobriety. He reports history of blackouts, + eye head of history and attends day program at [facility]. Exam Limitations: No Limitations - Ebola screening Have you traveled outside of the country in the last 21 days: No Have you had contact with anyone from an Ebola affected area: No Do you have a fever: No - Review of Systems Constitutional: No Symptoms Reported EENT: reports: No Symptoms Reported Respiratory: reports: No Symptoms reported Cardiac: reports: No Symptoms Reported GI: reports: No Symptoms Reported : reports: No Symptoms Reported Musculoskeletal: reports: No Symptoms Reported Integumentary: reports: No Symptoms Reported Neuro: reports: No Symptoms reported Endocrine: reports: No Symptoms Reported Hematology: reports: No Symptoms Reported Psychiatric: reports: No Sypmtoms Reported, Mood/Affect Appropiate, Orientated x3 Other Systems: Reviewed and Negative Patient History - Patient Medical History Hx Anemia: Yes (NO MEDCATION) Hx Asthma: Yes (ON ALBUTEROL INHALER) Hx Chronic Obstructive Pulmonary Disease (COPD): No Hx Cancer: No Hx Cardiac Disorders: No Hx Congestive Heart Failure: No Hx Hypertension: Yes (NIFEDIPINE, , NOT COMPLIANT) Hx Hypercholesterolemia: No Hx Pacemaker: No HX Cerebrovascular Accident: No Hx Seizures: Yes (alcohol related-last episode was in 2019) Hx Dementia: No Hx Diabetes: No Hx Gastrointestinal Disorders: Yes (GI bleeding, esophageal varice) Hx Liver Disease: No Hx Genitourinary Disorders: No Hx Sexually Transmitted Disorders: No Hx Renal Disease (ESRD): No Hx Thyroid Disease: No Hx Human Immunodeficiency Virus (HIV): No (Negative 2019) Hx Hepatitis C: No Hx Depression: Yes Hx Suicide Attempt: Yes (cut right wrist at age 37, D/C from [facility] for SI , denies SI at now) Hx Bipolar Disorder: No Hx Schizophrenia: No - Patient Surgical History Past Surgical History: Yes Hx Neurologic Surgery: No Hx Cataract Extraction: No Hx Cardiac Surgery: No Hx Lung Surgery: No Hx Breast Surgery: No Hx Breast Biopsy: No Hx Abdominal Surgery: No Hx Appendectomy: No Hx Cholecystectomy: No Hx Genitourinary Surgery: No Hx Section: No Hx Orthopedic Surgery: No Other Surgical History: left inguinal hernia repair in 1997 Anesthesia Reaction: No - PPD History Previous Implant?: Yes Documented Results: Negative w/o proof Implanted On Prior [facility] Admission?: Yes Date: 08/24/17 Results: 0 mm PPD to be Administered?: Yes - Reproductive History Patient is a Female of Child Bearing Age (11 -55 yrs old): No (male) - Smoking Cessation Smoking history: Current every day smoker Have you smoked in the past 12 months: Yes Aproximately how many cigarettes per day: 20 Cigars Per Day: 0 Hx Chewing Tobacco Use: No Initiated information on smoking cessation: Yes 'Breaking Loose' booklet given: 11/30/19 - Substance & Tx. History Hx Alcohol Use: Yes Hx Substance Use: Yes Substance Use Type: Alcohol, Marijuana Hx Substance Use Treatment: Yes ([facility]) - Substances abused Alcohol Substance route: Oral Amount used: 2 Wyatt Mccollum Age of first use: 11 Date of last use: 11/12/19 Marijuana/Hashish Substance route: Smoking Frequency: Daily Amount used: 1 bag Age of first use: 11 Date of last use: 11/12/19 Admission Physical Exam BHS - Physical General Appearance: Yes: Within Normal Limits HEENTM: Yes: Within Normal Limits Respiratory: Yes: Lungs Clear, Normal Breath Sounds, No Respiratory Distress Neck: Yes: Within Normal Limits Breast: Yes: Breast Exam Deferred Abdominal: Yes: Normal Bowel Sounds, Soft Genitourinary: Yes: Within Normal Limits Back: Yes: Normal Inspection Musculoskeletal: Yes: Within Normal Limits Neurological: Yes: Within Normal Limits, Alert, Motor Strength 5/5, Normal Mood/ Affect Integumentary: Yes: Warm Lymphatic: Yes: Within Normal Limits - Diagnostic (1) Asthma Current Visit: Yes Status: Chronic Qualifiers: Asthma severity: mild Asthma persistence: unspecified (2) GERD (gastroesophageal reflux disease) Current Visit: Yes Status: Chronic Qualifiers: Esophagitis presence: with esophagitis Qualified Code(s): K21.0 - Gastro- esophageal reflux disease with esophagitis (3) Cirrhosis of liver Current Visit: Yes Status: Chronic Qualifiers: Hepatic cirrhosis type: alcoholic cirrhosis Ascites presence: unspecified Qualified Code(s): K70.30 - Alcoholic cirrhosis of liver without ascites (4) Depression Current Visit: Yes Status: Chronic Qualifiers: Depression Type: unspecified Qualified Code(s): F32.9 - Major depressive disorder, single episode, unspecified (5) Alcohol dependence Current Visit: Yes Status: Chronic Qualifiers: Complication of substance-induced condition: uncomplicated (6) Nicotine dependence Current Visit: Yes Status: Acute Qualifiers: Nicotine product type: cigarettes Substance use status: uncomplicated Qualified Code(s): F17.210 - Nicotine dependence, cigarettes, uncomplicated (7) cannabis dependence Current Visit: Yes Status: Chronic (8) HTN (hypertension) Current Visit: Yes Status: Chronic Qualifiers: Hypertension type: essential hypertension Qualified Code(s): I10 - Essential (primary) hypertension (9) History of esophageal varices with bleeding Current Visit: No Status: Chronic (10) gynecomastia Current Visit: Yes Status: Chronic (11) History of GI bleed Current Visit: No Status: Chronic (12) Seizure due to alcohol withdrawal Current Visit: No Status: Chronic Qualifiers: Complication of substance-induced condition: uncomplicated Qualified Code(s ): F10.230 - Alcohol dependence with withdrawal, uncomplicated Comment: HISOTRY OF (13) depression Current Visit: Yes Status: Chronic Cleared for Admission BHS - Detox or Rehab [facility] Level of Care: Observation Bed Claeared for Rehab Admission: Yes Inpatient Rehab Admission - Rehab Decision to Admit Inpatient rehab admission?: Yes - Initial Determination Are CD services needed?: No Free of communicable disease: Yes Not in need of hospitalization: Yes - Rehab Admission Criteria Previous failed treatment: Yes Poor recovery environment: Yes Comorbidities: Yes Lacks judgement: No Patient is meeting Inpatient Rehab admission criteria:: Yes
[2019-11-30] MEDS ORDERED: MAGNESIUM HYDROX 2400MG/30ML ORAL SUSPENSION 30 ML CUP PO PRN (19:40)
[2019-11-30] MEDS ORDERED: MAGNESIUM CITRATE 300 ML BOTTLE PO PRN (19:40)
[2019-11-30] MEDS ORDERED: MENTHOL/PHENOL 1 EACH UD MM PRN (19:40)
[2019-11-30] MEDS ORDERED: P-EPHED 60MG/TRIPROLIDI 2.5MG TABLET PO PRN (19:40)
[2019-11-30] MEDS ORDERED: ACETAMINOPHEN 325 MG TABLET (FP) PO PRN (19:40)
[2019-11-30] MEDS ORDERED: NICOTINE POLACRILEX 2 MG GUM BUC PRN (19:40)
[2019-11-30] MEDS ORDERED: guaiFENesin 200 MG/10 ML 10 ML UNIT-DOSE CUPS PO PRN (19:40)
[2019-11-30] MEDS ORDERED: LOPERAMIDE HCL 2 MG CAPSULE PO PRN (19:40)
[2019-11-30] MEDS ORDERED: ALBUTEROL SO4 HFA INHALER IH PRN (19:42)
[2019-11-30 20:09] VITALS: BMI 32.2
[2019-11-30] MEDS: MELATONIN 5 MG TABLETS PO PRN (21:33)
[2019-11-30] MEDS: THIAMINE HCL 100 MG TABLET (FP) PO SCH (21:33)
[2019-11-30] MEDS ORDERED: TUBERCULIN PPD 5 TU/0.1ML VIAL ID ONE (21:36)
[2019-12-01] MEDS: NICOTINE 21 MG/24 HOURS TOPICAL PATCH TD SCH (09:34)
[2019-12-01] MEDS: PRENATAL VITAMINS W/ FOLIC ACID TABLET (FP) PO SCH (09:34)
[2019-12-01 11:56] LABS: HEMATOCRIT 35.7 % (35.4-49); HEMOGLOBIN 11.9 GM/dL (11.7-16.9); MCH 28.6 pg (25.7-33.7); MCHC 33.4 g/dl (32.0-35.9); MEAN CELL VOLUME 85.8 fl (80-96); MEAN PLT VOLUME 8.8 fl (7.5-11.1); PLATELET COUNT 88 K/MM3 (134-434); RBC 4.17 M/mm3 (4.00-5.60); RDW 16.9 % (11.9-15.9); WHITE BLOOD COUNT 5.2 K/mm3 (4.0-10.0)
[2019-12-01 12:07] LABS: ALBUMIN 3.6 g/dl (3.4-5.0); BILIRUBIN,TOTAL 0.6 mg/dL (0.2-1); BLOOD UREA NITROGEN 20.5 mg/dL (7-18); CALCIUM 8.7 mg/dL (8.5-10.1); CREATININE 0.6 mg/dL (0.55-1.3); POTASSIUM 3.7 mmol/L (3.5-5.1); TOT PROT 6.5 g/dl (6.4-8.2)
[2019-12-01] MEDS: MELATONIN 5 MG TABLETS PO PRN (21:18)
[2019-12-01] MEDS: THIAMINE HCL 100 MG TABLET (FP) PO SCH (21:18)
[2019-12-02] MEDS: IBUPROFEN 400 MG TABLET (FP) PO PRN (09:39)
[2019-12-02] MEDS: NICOTINE 21 MG/24 HOURS TOPICAL PATCH TD SCH (09:39)
[2019-12-02] MEDS: PRENATAL VITAMINS W/ FOLIC ACID TABLET (FP) PO SCH (09:39)
[2019-12-02] MEDS ORDERED: ALBUTEROL SO4 HFA INHALER IH PRN (11:13)
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
[2019-12-02] MEDS ORDERED: ESCITALOPRAM OXALATE 10 MG TABLET ONE (14:05)
[2019-12-02] MEDS: GABAPENTIN 300 MG CAPSULE PO SCH ×2 (14:27→21:29)
[2019-12-02] MEDS: ESCITALOPRAM OXALATE 20 MG TABLET PO SCH (14:28)
[2019-12-02] MEDS: MIRTAZAPINE 30 MG TABLET (FP) PO SCH (21:29)
[2019-12-02] MEDS: MELATONIN 5 MG TABLETS PO PRN (21:29)
[2019-12-02] MEDS: MOMETASONE FUROATE 220 MCG/IH INHALER IH SCH (21:30)
[2019-12-02] MEDS ORDERED: MOMETASONE FUROATE 220 MCG/IH INHALER IH SCH (22:00)
[2019-12-03] MEDS ORDERED: ESCITALOPRAM OXALATE 10 MG TABLET ONE (08:59)
[2019-12-03] MEDS: GABAPENTIN 300 MG CAPSULE PO SCH ×2 (10:33→21:15)
[2019-12-03] MEDS: PRENATAL VITAMINS W/ FOLIC ACID TABLET (FP) PO SCH (10:33)
[2019-12-03] MEDS: NICOTINE 21 MG/24 HOURS TOPICAL PATCH TD SCH (10:33)
[2019-12-03] MEDS: FUROSEMIDE 40 MG TABLET (FP) PO SCH (10:33)
[2019-12-03] MEDS: ESCITALOPRAM OXALATE 20 MG TABLET PO SCH (10:33)
[2019-12-03] MEDS: THIAMINE HCL 100 MG TABLET (FP) PO SCH (11:05)
[2019-12-03] MEDS: MOMETASONE FUROATE 220 MCG/IH INHALER IH SCH ×2 (11:05→21:16)
[2019-12-03 14:35] LABS: URINE APPEARANCE CLEAR; URINE BILIRUBIN NEGATIVE (NEGATIVE); URINE COLOR YELLOW; URINE GLUCOSE (UA) NEGATIVE (NEGATIVE); URINE KETONE NEGATIVE (NEGATIVE); URINE LEUK ESTERASE NEGATIVE (NEGATIVE); URINE NITRITE NEGATIVE (NEGATIVE); URINE PROTEIN NEGATIVE (NEGATIVE); URINE UROBILINOGEN 0.2 mg/dL (0.2-1.0)
[2019-12-03] MEDS: MELATONIN 5 MG TABLETS PO PRN (21:15)
[2019-12-03] MEDS: MIRTAZAPINE 30 MG TABLET (FP) PO SCH (21:15)
[2019-12-04] MEDS: NICOTINE 21 MG/24 HOURS TOPICAL PATCH TD SCH (09:46)
[2019-12-04] MEDS: MOMETASONE FUROATE 220 MCG/IH INHALER IH SCH ×2 (09:46→21:18)
[2019-12-04] MEDS: ESCITALOPRAM OXALATE 20 MG TABLET PO SCH (09:46)
[2019-12-04] MEDS: FUROSEMIDE 40 MG TABLET (FP) PO SCH (09:46)
[2019-12-04] MEDS: PRENATAL VITAMINS W/ FOLIC ACID TABLET (FP) PO SCH (09:47)
[2019-12-04] MEDS: GABAPENTIN 300 MG CAPSULE PO SCH ×2 (09:47→21:18)
[2019-12-04] MEDS: THIAMINE HCL 100 MG TABLET (FP) PO SCH (09:47)
[2019-12-04] MEDS: MIRTAZAPINE 30 MG TABLET (FP) PO SCH (21:18)
[2019-12-04] MEDS: MELATONIN 5 MG TABLETS PO PRN (21:18)
[2019-12-05] MEDS: MOMETASONE FUROATE 220 MCG/IH INHALER IH SCH ×2 (09:43→21:18)
[2019-12-05] MEDS: THIAMINE HCL 100 MG TABLET (FP) PO SCH (09:43)
[2019-12-05] MEDS: FUROSEMIDE 40 MG TABLET (FP) PO SCH (09:43)
[2019-12-05] MEDS: GABAPENTIN 300 MG CAPSULE PO SCH ×2 (09:43→21:17)
[2019-12-05] MEDS: ESCITALOPRAM OXALATE 20 MG TABLET PO SCH (09:43)
[2019-12-05] MEDS: NICOTINE 21 MG/24 HOURS TOPICAL PATCH TD SCH (09:43)
[2019-12-05] MEDS: PRENATAL VITAMINS W/ FOLIC ACID TABLET (FP) PO SCH (09:44)
[2019-12-05] MEDS: MELATONIN 5 MG TABLETS PO PRN (21:17)
[2019-12-05] MEDS: MIRTAZAPINE 30 MG TABLET (FP) PO SCH (21:18)
[2019-12-06] MEDS ORDERED: ESCITALOPRAM OXALATE 10 MG TABLET ONE (09:00)
[2019-12-06] MEDS: FUROSEMIDE 40 MG TABLET (FP) PO SCH (09:38)
[2019-12-06] MEDS: ESCITALOPRAM OXALATE 20 MG TABLET PO SCH (09:38)
[2019-12-06] MEDS: THIAMINE HCL 100 MG TABLET (FP) PO SCH (09:38)
[2019-12-06] MEDS: GABAPENTIN 300 MG CAPSULE PO SCH ×2 (09:38→21:37)
[2019-12-06] MEDS: PRENATAL VITAMINS W/ FOLIC ACID TABLET (FP) PO SCH (09:38)
[2019-12-06] MEDS: NICOTINE 21 MG/24 HOURS TOPICAL PATCH TD SCH (09:39)
[2019-12-06] MEDS: MOMETASONE FUROATE 220 MCG/IH INHALER IH SCH ×2 (09:40→21:38)
--- NOTE | 2019-12-06 14:49 | PN ---
[facility] Progress Note Note: Patient has long standing history of alcohol dependence, cirrhosis of liver, esophageal varices, HTN, anemia and GERD. He is currently in rehab for ETOH dependence and is interested in starting Vivitrol MAT. Counselor contacted [facility] for aftercare and is pending call back from facility. Labs noted below, V/S presently stable. Laboratory Tests 12/01/19 12/01/19 12/01/19 07:35 07:35 07:35 WBC 5.2 RBC 4.17 Hgb 11.9 Hct 35.7 MCV 85.8 MCH 28.6 MCHC 33.4 RDW 16.9 H Plt Count 88 L MPV 8.8 Sodium 140 Potassium 3.7 Chloride 106 Carbon Dioxide 25 Anion Gap 9 BUN 20.5 H Creatinine 0.6 Est GFR (CKD-EPI)AfAm 130.27 Est GFR (CKD-EPI)NonAf 112.40 Random Glucose 101 Calcium 8.7 Total Bilirubin 0.6 AST 25 ALT 38 Alkaline Phosphatase 80 Total Protein 6.5 Albumin 3.6 Urine Color Urine Appearance Urine pH Ur Specific [place] Urine Protein Urine Glucose (UA) Urine Ketones Urine Blood Urine Nitrite Urine Bilirubin Urine Urobilinogen Ur Leukocyte Esterase RPR Titer Nonreactive 12/03/19 09:00 WBC RBC Hgb Hct MCV MCH MCHC RDW Plt Count MPV Sodium Potassium Chloride Carbon Dioxide Anion Gap BUN Creatinine Est GFR (CKD-EPI)AfAm Est GFR (CKD-EPI)NonAf Random Glucose Calcium Total Bilirubin AST ALT Alkaline Phosphatase Total Protein Albumin Urine Color Yellow Urine Appearance Clear Urine pH 6.0 Ur Specific [place] 1.011 Urine Protein Negative Urine Glucose (UA) Negative Urine Ketones Negative Urine Blood Negative Urine Nitrite Negative Urine Bilirubin Negative Urine Urobilinogen 0.2 Ur Leukocyte Esterase Negative RPR Titer Vital Signs Period Temp Pulse Resp BP Sys/Morris Pulse Ox Last 24 Hr 97.2 F 54-75 16-18 119-144/79-80 A/P: ETOH dependence Urine tox ordered Istop negative for controlled substances once acceptance to [facility] confirmed, will start naltrexone challenge
[2019-12-06] MEDS: IBUPROFEN 400 MG TABLET (FP) PO PRN (18:08)
[2019-12-06] MEDS: MIRTAZAPINE 30 MG TABLET (FP) PO SCH (21:37)
[2019-12-06] MEDS: MELATONIN 5 MG TABLETS PO PRN (21:42)
[2019-12-06] MEDS: MAG HYDROX/AL HYDROX/SIMETH 30 ML UNIT-DOSE CUP PO PRN (21:43)
[2019-12-07] MEDS ORDERED: ESCITALOPRAM OXALATE 10 MG TABLET ONE (08:44)
[2019-12-07] MEDS: MOMETASONE FUROATE 220 MCG/IH INHALER IH SCH ×2 (10:16→21:20)
[2019-12-07] MEDS: NICOTINE 21 MG/24 HOURS TOPICAL PATCH TD SCH (10:16)
[2019-12-07] MEDS: PRENATAL VITAMINS W/ FOLIC ACID TABLET (FP) PO SCH (10:17)
[2019-12-07] MEDS: FUROSEMIDE 40 MG TABLET (FP) PO SCH (10:17)
[2019-12-07] MEDS: THIAMINE HCL 100 MG TABLET (FP) PO SCH (10:17)
[2019-12-07] MEDS: ESCITALOPRAM OXALATE 20 MG TABLET PO SCH (10:17)
[2019-12-07] MEDS: GABAPENTIN 300 MG CAPSULE PO SCH ×2 (10:17→21:19)
[2019-12-07] MEDS: MAG HYDROX/AL HYDROX/SIMETH 30 ML UNIT-DOSE CUP PO PRN (15:23)
[2019-12-07] MEDS: MIRTAZAPINE 30 MG TABLET (FP) PO SCH (21:19)
[2019-12-07] MEDS: MELATONIN 5 MG TABLETS PO PRN (21:19)
[2019-12-08] MEDS ORDERED: ESCITALOPRAM OXALATE 10 MG TABLET ONE (09:23)
--- NOTE | 2019-12-08 10:02 | PN ---
S Progress Note (SOAP) Subjective: Patient requesting to start Vivitrol MAT. Patient has long standing history of alcohol dependence, cirrhosis of liver, esophageal varices, HTN, anemia and GERD. He is currently in rehab for ETOH dependence. Counselor contacted [facility] for aftercare and was informed that he is a [facility] and they will continue Vivitrol treatment when the patient returns to their care. Objective: 12/08/19 09:58 Laboratory Last Values WBC 5.2 K/mm3 (4.0-10.0) 12/01/19 07:35 RBC 4.17 M/mm3 (4.00-5.60) 12/01/19 07:35 Hgb 11.9 GM/dL (11.7-16.9) 12/01/19 07:35 Hct 35.7 % (35.4-49) 12/01/19 07:35 MCV 85.8 fl (80-96) 12/01/19 07:35 MCH 28.6 pg (25.7-33.7) 12/01/19 07:35 MCHC 33.4 g/dl (32.0-35.9) 12/01/19 07:35 RDW 16.9 % (11.9-15.9) H 12/01/19 07:35 Plt Count 88 K/MM3 (134-434) L 12/01/19 07:35 MPV 8.8 fl (7.5-11.1) 12/01/19 07:35 Sodium 140 mmol/L (136-145) 12/01/19 07:35 Potassium 3.7 mmol/L (3.5-5.1) 12/01/19 07:35 Chloride 106 mmol/L (98-107) 12/01/19 07:35 Carbon Dioxide 25 mmol/L (21-32) 12/01/19 07:35 Anion Gap 9 MMOL/L (8-16) 12/01/19 07:35 BUN 20.5 mg/dL (7-18) H 12/01/19 07:35 Creatinine 0.6 mg/dL (0.55-1.3) 12/01/19 07:35 Est GFR (CKD-EPI)AfAm 130.27 12/01/19 07:35 Est GFR (CKD-EPI)NonAf 112.40 12/01/19 07:35 Random Glucose 101 mg/dL (74-106) 12/01/19 07:35 Calcium 8.7 mg/dL (8.5-10.1) 12/01/19 07:35 Total Bilirubin 0.6 mg/dL (0.2-1) 12/01/19 07:35 AST 25 U/L (15-37) 12/01/19 07:35 ALT 38 U/L (13-61) 12/01/19 07:35 Alkaline Phosphatase 80 U/L (45-117) 12/01/19 07:35 Total Protein 6.5 g/dl (6.4-8.2) 12/01/19 07:35 Albumin 3.6 g/dl (3.4-5.0) 12/01/19 07:35 Urine Color Yellow 12/03/19 09:00 Urine Appearance Clear 12/03/19 09:00 Urine pH 6.0 (5.0-8.0) 12/03/19 09:00 Ur Specific [place] 1.011 (1.010-1.035) 12/03/19 09:00 Urine Protein Negative (NEGATIVE) 12/03/19 09:00 Urine Glucose (UA) Negative (NEGATIVE) 12/03/19 09:00 Urine Ketones Negative (NEGATIVE) 12/03/19 09:00 Urine Blood Negative (NEGATIVE) 12/03/19 09:00 Urine Nitrite Negative (NEGATIVE) 12/03/19 09:00 Urine Bilirubin Negative (NEGATIVE) 12/03/19 09:00 Urine Urobilinogen 0.2 mg/dL (0.2-1.0) 12/03/19 09:00 Ur Leukocyte Esterase Negative (NEGATIVE) 12/03/19 09:00 RPR Titer Nonreactive (NONREACTIVE) 12/01/19 07:35 Vital Signs Period Temp Pulse Resp BP Sys/Morris Pulse Ox Last 24 Hr 97.7 F 61-67 18-18 118-145/70-70 P/E: General: no apparent distress HEENTM: normocephalic, PERRLA Neck: supple Lungs: clear Heart: s1 s2 ABD: +BS Neuro: CN 2-12 intact; no cognitive deficits noted MSK: full weight bearing, steady gait. 12/08/19 09:58 Assessment: ETOH dependence cirrhosis of the liver Liver enzymes are stable Vital signs are stable UTox indicates only cannabis in his urine, which does not have any known interaction with naltraxone 12/08/19 09:59 12/08/19 10:02 Plan: Will start Naltraxone today. Discussed benefits and adverse effects of Naltraxone and Vivitrol MAT Patient indicated understanding of discussion. Patient is aware of the effect of naltraxone on the liver and agrees to treatment
[2019-12-08] MEDS: FUROSEMIDE 40 MG TABLET (FP) PO SCH (10:15)
[2019-12-08] MEDS: NALTREXONE HCL 50 MG TABLET PO SCH (10:16)
[2019-12-08] MEDS: THIAMINE HCL 100 MG TABLET (FP) PO SCH (10:16)
[2019-12-08] MEDS: NICOTINE 21 MG/24 HOURS TOPICAL PATCH TD SCH (10:16)
[2019-12-08] MEDS: PRENATAL VITAMINS W/ FOLIC ACID TABLET (FP) PO SCH (10:16)
[2019-12-08] MEDS: GABAPENTIN 300 MG CAPSULE PO SCH ×2 (10:17→21:20)
[2019-12-08] MEDS: MOMETASONE FUROATE 220 MCG/IH INHALER IH SCH ×2 (10:17→21:21)
[2019-12-08] MEDS: ESCITALOPRAM OXALATE 20 MG TABLET PO SCH (10:20)
[2019-12-08] MEDS: MIRTAZAPINE 30 MG TABLET (FP) PO SCH (21:20)
[2019-12-08] MEDS: MELATONIN 5 MG TABLETS PO PRN (21:20)
[2019-12-08] MEDS: IBUPROFEN 400 MG TABLET (FP) PO PRN (21:21)
[2019-12-09] MEDS ORDERED: ESCITALOPRAM OXALATE 10 MG TABLET ONE (09:11)
[2019-12-09] MEDS: FUROSEMIDE 40 MG TABLET (FP) PO SCH (10:24)
[2019-12-09] MEDS: GABAPENTIN 300 MG CAPSULE PO SCH ×2 (10:24→21:23)
[2019-12-09] MEDS: PRENATAL VITAMINS W/ FOLIC ACID TABLET (FP) PO SCH (10:24)
[2019-12-09] MEDS: MOMETASONE FUROATE 220 MCG/IH INHALER IH SCH ×2 (10:25→21:24)
[2019-12-09] MEDS: NALTREXONE HCL 50 MG TABLET PO SCH (10:25)
[2019-12-09] MEDS: ESCITALOPRAM OXALATE 20 MG TABLET PO SCH (10:25)
[2019-12-09] MEDS: NICOTINE 21 MG/24 HOURS TOPICAL PATCH TD SCH (10:25)
[2019-12-09] MEDS: THIAMINE HCL 100 MG TABLET (FP) PO SCH (10:25)
[2019-12-09] MEDS: IBUPROFEN 400 MG TABLET (FP) PO PRN (14:00)
[2019-12-09] MEDS: MELATONIN 5 MG TABLETS PO PRN (21:23)
[2019-12-09] MEDS: MIRTAZAPINE 30 MG TABLET (FP) PO SCH (21:24)
[2019-12-10] MEDS ORDERED: ESCITALOPRAM OXALATE 10 MG TABLET ONE (08:44)
[2019-12-10] MEDS: ESCITALOPRAM OXALATE 20 MG TABLET PO SCH (10:14)
[2019-12-10] MEDS: PRENATAL VITAMINS W/ FOLIC ACID TABLET (FP) PO SCH (10:14)
[2019-12-10] MEDS: NALTREXONE HCL 50 MG TABLET PO SCH (10:14)
[2019-12-10] MEDS: THIAMINE HCL 100 MG TABLET (FP) PO SCH (10:14)
[2019-12-10] MEDS: FUROSEMIDE 40 MG TABLET (FP) PO SCH (10:14)
[2019-12-10] MEDS: GABAPENTIN 300 MG CAPSULE PO SCH ×2 (10:14→21:16)
[2019-12-10] MEDS: NICOTINE 21 MG/24 HOURS TOPICAL PATCH TD SCH (10:14)
[2019-12-10] MEDS: MOMETASONE FUROATE 220 MCG/IH INHALER IH SCH ×2 (10:15→21:17)
[2019-12-10] MEDS: MIRTAZAPINE 30 MG TABLET (FP) PO SCH (21:17)
[2019-12-10] MEDS: MELATONIN 5 MG TABLETS PO PRN (21:17)
[2019-12-11] MEDS ORDERED: ESCITALOPRAM OXALATE 10 MG TABLET ONE (08:50)
[2019-12-11] MEDS: NICOTINE 21 MG/24 HOURS TOPICAL PATCH TD SCH (09:53)
[2019-12-11] MEDS: THIAMINE HCL 100 MG TABLET (FP) PO SCH (09:53)
[2019-12-11] MEDS: GABAPENTIN 300 MG CAPSULE PO SCH ×2 (09:54→22:29)
[2019-12-11] MEDS: FUROSEMIDE 40 MG TABLET (FP) PO SCH (09:54)
[2019-12-11] MEDS: PRENATAL VITAMINS W/ FOLIC ACID TABLET (FP) PO SCH (09:54)
[2019-12-11] MEDS: ESCITALOPRAM OXALATE 20 MG TABLET PO SCH (09:54)
[2019-12-11] MEDS: NALTREXONE HCL 50 MG TABLET PO SCH (09:54)
[2019-12-11] MEDS: MOMETASONE FUROATE 220 MCG/IH INHALER IH SCH ×2 (09:56→22:30)
[2019-12-11] MEDS ORDERED: PT OWN MED DRAWER 7, Y5N ONE ×2 (09:57→20:21)
[2019-12-11] MEDS: MIRTAZAPINE 30 MG TABLET (FP) PO SCH (22:30)
[2019-12-11] MEDS: MELATONIN 5 MG TABLETS PO PRN (22:31)
[2019-12-12] MEDS ORDERED: ESCITALOPRAM OXALATE 10 MG TABLET ONE (10:33)
[2019-12-12] MEDS: PRENATAL VITAMINS W/ FOLIC ACID TABLET (FP) PO SCH (10:34)
[2019-12-12] MEDS: FUROSEMIDE 40 MG TABLET (FP) PO SCH (10:34)
[2019-12-12] MEDS: ESCITALOPRAM OXALATE 20 MG TABLET PO SCH (10:34)
[2019-12-12] MEDS: GABAPENTIN 300 MG CAPSULE PO SCH ×2 (10:34→21:57)
[2019-12-12] MEDS: MOMETASONE FUROATE 220 MCG/IH INHALER IH SCH ×2 (10:34→21:58)
[2019-12-12] MEDS: THIAMINE HCL 100 MG TABLET (FP) PO SCH (10:34)
[2019-12-12] MEDS: NALTREXONE HCL 50 MG TABLET PO SCH (10:34)
[2019-12-12] MEDS: NICOTINE 21 MG/24 HOURS TOPICAL PATCH TD SCH (10:34)
[2019-12-12] MEDS ORDERED: PT OWN MED DRAWER 7, Y5N ONE (21:09)
[2019-12-12] MEDS: MIRTAZAPINE 30 MG TABLET (FP) PO SCH (21:57)
[2019-12-12] MEDS: IBUPROFEN 400 MG TABLET (FP) PO PRN (21:59)
[2019-12-12] MEDS: MELATONIN 5 MG TABLETS PO PRN (21:59)
[2019-12-13] MEDS: FUROSEMIDE 40 MG TABLET (FP) PO SCH (10:16)
[2019-12-13] MEDS: PRENATAL VITAMINS W/ FOLIC ACID TABLET (FP) PO SCH (10:16)
[2019-12-13] MEDS: MOMETASONE FUROATE 220 MCG/IH INHALER IH SCH ×2 (10:16→21:18)
[2019-12-13] MEDS: NALTREXONE HCL 50 MG TABLET PO SCH (10:16)
[2019-12-13] MEDS: ESCITALOPRAM OXALATE 20 MG TABLET PO SCH (10:16)
[2019-12-13] MEDS: THIAMINE HCL 100 MG TABLET (FP) PO SCH (10:16)
[2019-12-13] MEDS: NICOTINE 21 MG/24 HOURS TOPICAL PATCH TD SCH (10:17)
[2019-12-13] MEDS: GABAPENTIN 300 MG CAPSULE PO SCH ×2 (10:17→21:18)
[2019-12-13] MEDS: MIRTAZAPINE 30 MG TABLET (FP) PO SCH (21:18)
[2019-12-13] MEDS: MELATONIN 5 MG TABLETS PO PRN (21:18)
[2019-12-13] MEDS: IBUPROFEN 400 MG TABLET (FP) PO PRN (23:52)
[2019-12-13] MEDS: MAG HYDROX/AL HYDROX/SIMETH 30 ML UNIT-DOSE CUP PO PRN (23:53)
[2019-12-14] MEDS: MOMETASONE FUROATE 220 MCG/IH INHALER IH SCH ×2 (10:33→21:30)
[2019-12-14] MEDS: GABAPENTIN 300 MG CAPSULE PO SCH ×2 (10:34→21:16)
[2019-12-14] MEDS: PRENATAL VITAMINS W/ FOLIC ACID TABLET (FP) PO SCH (10:34)
[2019-12-14] MEDS: NICOTINE 21 MG/24 HOURS TOPICAL PATCH TD SCH (10:35)
[2019-12-14] MEDS: FUROSEMIDE 40 MG TABLET (FP) PO SCH (10:35)
[2019-12-14] MEDS: THIAMINE HCL 100 MG TABLET (FP) PO SCH (10:35)
[2019-12-14] MEDS: NALTREXONE HCL 50 MG TABLET PO SCH (10:35)
[2019-12-14] MEDS: ESCITALOPRAM OXALATE 20 MG TABLET PO SCH (10:36)
[2019-12-14] MEDS: MAG HYDROX/AL HYDROX/SIMETH 30 ML UNIT-DOSE CUP PO PRN (13:54)
[2019-12-14] MEDS: MELATONIN 5 MG TABLETS PO PRN (21:16)
[2019-12-14] MEDS: MIRTAZAPINE 30 MG TABLET (FP) PO SCH (21:17)
[2019-12-15] MEDS ORDERED: ESCITALOPRAM OXALATE 10 MG TABLET ONE (08:49)
[2019-12-15] MEDS ORDERED: PT OWN MED DRAWER 7, Y5N ONE (08:51)
[2019-12-15] MEDS: THIAMINE HCL 100 MG TABLET (FP) PO SCH (10:07)
[2019-12-15] MEDS: GABAPENTIN 300 MG CAPSULE PO SCH ×2 (10:07→21:17)
[2019-12-15] MEDS: NICOTINE 21 MG/24 HOURS TOPICAL PATCH TD SCH (10:07)
[2019-12-15] MEDS: ESCITALOPRAM OXALATE 20 MG TABLET PO SCH (10:07)
[2019-12-15] MEDS: FUROSEMIDE 40 MG TABLET (FP) PO SCH (10:07)
[2019-12-15] MEDS: NALTREXONE HCL 50 MG TABLET PO SCH (10:07)
[2019-12-15] MEDS: MOMETASONE FUROATE 220 MCG/IH INHALER IH SCH ×2 (10:10→21:17)
[2019-12-15] MEDS: PRENATAL VITAMINS W/ FOLIC ACID TABLET (FP) PO SCH (10:10)
[2019-12-15] MEDS: MELATONIN 5 MG TABLETS PO PRN (21:16)
[2019-12-15] MEDS: MIRTAZAPINE 30 MG TABLET (FP) PO SCH (21:17)
[2019-12-16] MEDS ORDERED: ESCITALOPRAM OXALATE 10 MG TABLET ONE (08:50)
[2019-12-16] MEDS: NICOTINE 21 MG/24 HOURS TOPICAL PATCH TD SCH (10:18)
[2019-12-16] MEDS: GABAPENTIN 300 MG CAPSULE PO SCH ×2 (10:18→21:45)
[2019-12-16] MEDS: MOMETASONE FUROATE 220 MCG/IH INHALER IH SCH ×2 (10:19→21:45)
[2019-12-16] MEDS: NALTREXONE HCL 50 MG TABLET PO SCH (10:19)
[2019-12-16] MEDS: ESCITALOPRAM OXALATE 20 MG TABLET PO SCH (10:19)
[2019-12-16] MEDS: THIAMINE HCL 100 MG TABLET (FP) PO SCH (10:19)
[2019-12-16] MEDS: PRENATAL VITAMINS W/ FOLIC ACID TABLET (FP) PO SCH (10:19)
[2019-12-16] MEDS: FUROSEMIDE 40 MG TABLET (FP) PO SCH (10:19)
[2019-12-16] MEDS: IBUPROFEN 400 MG TABLET (FP) PO PRN (15:20)
[2019-12-16] MEDS: MAG HYDROX/AL HYDROX/SIMETH 30 ML UNIT-DOSE CUP PO PRN (15:20)
[2019-12-16] MEDS: MIRTAZAPINE 30 MG TABLET (FP) PO SCH (21:45)
[2019-12-16] MEDS: MELATONIN 5 MG TABLETS PO PRN (21:46)
[2019-12-17] MEDS: PRENATAL VITAMINS W/ FOLIC ACID TABLET (FP) PO SCH (09:32)
[2019-12-17] MEDS: FUROSEMIDE 40 MG TABLET (FP) PO SCH (09:32)
[2019-12-17] MEDS: NICOTINE 21 MG/24 HOURS TOPICAL PATCH TD SCH (09:32)
[2019-12-17] MEDS: ESCITALOPRAM OXALATE 20 MG TABLET PO SCH (09:32)
[2019-12-17] MEDS: NALTREXONE HCL 50 MG TABLET PO SCH (09:33)
[2019-12-17] MEDS: MOMETASONE FUROATE 220 MCG/IH INHALER IH SCH ×2 (09:33→21:19)
[2019-12-17] MEDS: GABAPENTIN 300 MG CAPSULE PO SCH ×2 (09:33→21:19)
[2019-12-17] MEDS: THIAMINE HCL 100 MG TABLET (FP) PO SCH (09:33)
[2019-12-17] MEDS: IBUPROFEN 400 MG TABLET (FP) PO PRN (15:01)
[2019-12-17] MEDS: MIRTAZAPINE 30 MG TABLET (FP) PO SCH (21:19)
[2019-12-17] MEDS: MELATONIN 5 MG TABLETS PO PRN (21:19)
[2019-12-18] MEDS: MOMETASONE FUROATE 220 MCG/IH INHALER IH SCH ×2 (09:36→21:20)
[2019-12-18] MEDS: PRENATAL VITAMINS W/ FOLIC ACID TABLET (FP) PO SCH (09:36)
[2019-12-18] MEDS: GABAPENTIN 300 MG CAPSULE PO SCH ×2 (09:36→21:19)
[2019-12-18] MEDS: NALTREXONE HCL 50 MG TABLET PO SCH (09:36)
[2019-12-18] MEDS: ESCITALOPRAM OXALATE 20 MG TABLET PO SCH (09:37)
[2019-12-18] MEDS: FUROSEMIDE 40 MG TABLET (FP) PO SCH (09:37)
[2019-12-18] MEDS: IBUPROFEN 400 MG TABLET (FP) PO PRN ×2 (09:37→23:33)
[2019-12-18] MEDS: THIAMINE HCL 100 MG TABLET (FP) PO SCH (09:37)
[2019-12-18] MEDS: NICOTINE 21 MG/24 HOURS TOPICAL PATCH TD SCH (09:38)
[2019-12-18] MEDS: MELATONIN 5 MG TABLETS PO PRN (21:19)
[2019-12-18] MEDS: MIRTAZAPINE 30 MG TABLET (FP) PO SCH (21:19)
[2019-12-19] MEDS: MOMETASONE FUROATE 220 MCG/IH INHALER IH SCH ×2 (09:33→21:21)
[2019-12-19] MEDS: NICOTINE 21 MG/24 HOURS TOPICAL PATCH TD SCH (09:33)
[2019-12-19] MEDS: GABAPENTIN 300 MG CAPSULE PO SCH ×2 (09:34→21:21)
[2019-12-19] MEDS: NALTREXONE HCL 50 MG TABLET PO SCH (09:34)
[2019-12-19] MEDS: PRENATAL VITAMINS W/ FOLIC ACID TABLET (FP) PO SCH (09:34)
[2019-12-19] MEDS: FUROSEMIDE 40 MG TABLET (FP) PO SCH (09:34)
[2019-12-19] MEDS: ESCITALOPRAM OXALATE 20 MG TABLET PO SCH (09:34)
[2019-12-19] MEDS: THIAMINE HCL 100 MG TABLET (FP) PO SCH (09:36)
[2019-12-19] MEDS: MIRTAZAPINE 30 MG TABLET (FP) PO SCH (21:21)
[2019-12-19] MEDS: MELATONIN 5 MG TABLETS PO PRN (21:21)
[2019-12-20] MEDS: NICOTINE 21 MG/24 HOURS TOPICAL PATCH TD SCH (09:57)
[2019-12-20] MEDS: ESCITALOPRAM OXALATE 20 MG TABLET PO SCH (09:57)
[2019-12-20] MEDS: PRENATAL VITAMINS W/ FOLIC ACID TABLET (FP) PO SCH (09:57)
[2019-12-20] MEDS: THIAMINE HCL 100 MG TABLET (FP) PO SCH (09:57)
[2019-12-20] MEDS: MOMETASONE FUROATE 220 MCG/IH INHALER IH SCH ×2 (09:57→21:22)
[2019-12-20] MEDS: FUROSEMIDE 40 MG TABLET (FP) PO SCH (09:57)
[2019-12-20] MEDS: GABAPENTIN 300 MG CAPSULE PO SCH ×2 (09:57→21:23)
[2019-12-20] MEDS: NALTREXONE HCL 50 MG TABLET PO SCH (09:59)
[2019-12-20] MEDS: MAG HYDROX/AL HYDROX/SIMETH 30 ML UNIT-DOSE CUP PO PRN (09:59)
[2019-12-20] MEDS: MIRTAZAPINE 30 MG TABLET (FP) PO SCH (21:23)
[2019-12-20] MEDS: MELATONIN 5 MG TABLETS PO PRN (21:23)
[2019-12-20] MEDS: IBUPROFEN 400 MG TABLET (FP) PO PRN (21:24)
[2019-12-21] MEDS: NICOTINE 21 MG/24 HOURS TOPICAL PATCH TD SCH (09:56)
[2019-12-21] MEDS: FUROSEMIDE 40 MG TABLET (FP) PO SCH (09:56)
[2019-12-21] MEDS: NALTREXONE HCL 50 MG TABLET PO SCH (09:56)
[2019-12-21] MEDS: ESCITALOPRAM OXALATE 20 MG TABLET PO SCH (09:57)
[2019-12-21] MEDS: GABAPENTIN 300 MG CAPSULE PO SCH ×2 (09:57→21:18)
[2019-12-21] MEDS: PRENATAL VITAMINS W/ FOLIC ACID TABLET (FP) PO SCH (09:57)
[2019-12-21] MEDS: THIAMINE HCL 100 MG TABLET (FP) PO SCH (09:57)
[2019-12-21] MEDS: MOMETASONE FUROATE 220 MCG/IH INHALER IH SCH ×2 (10:15→21:18)
[2019-12-21] MEDS: IBUPROFEN 400 MG TABLET (FP) PO PRN (13:32)
[2019-12-21] MEDS: MIRTAZAPINE 30 MG TABLET (FP) PO SCH (21:18)
[2019-12-21] MEDS: MELATONIN 5 MG TABLETS PO PRN (21:18)
[2019-12-22] MEDS: NALTREXONE HCL 50 MG TABLET PO SCH (09:39)
[2019-12-22] MEDS: THIAMINE HCL 100 MG TABLET (FP) PO SCH (09:39)
[2019-12-22] MEDS: GABAPENTIN 300 MG CAPSULE PO SCH ×2 (09:39→21:32)
[2019-12-22] MEDS: NICOTINE 21 MG/24 HOURS TOPICAL PATCH TD SCH (09:39)
[2019-12-22] MEDS: FUROSEMIDE 40 MG TABLET (FP) PO SCH (09:39)
[2019-12-22] MEDS: PRENATAL VITAMINS W/ FOLIC ACID TABLET (FP) PO SCH (09:39)
[2019-12-22] MEDS: MOMETASONE FUROATE 220 MCG/IH INHALER IH SCH ×2 (09:39→21:33)
[2019-12-22] MEDS: ESCITALOPRAM OXALATE 20 MG TABLET PO SCH (09:39)
[2019-12-22] MEDS ORDERED: NALTREXONE MICROSPHERES (VIVITROL) 380 MG DISP.SYRIN IM ONE (10:43)
--- NOTE | 2019-12-22 10:46 | PN ---
[facility] Progress Note Note: Patient has been on oral Naltraxone for one week without any reactions or adverse events He will be discharged on Friday. Vivitrol injection ordered for tomorrow. Will continue to monitor. Patient has an outpatient facility that will continue Vivitrol treatment, and he has used it in the past without any issues.
[2019-12-22] MEDS: MELATONIN 5 MG TABLETS PO PRN (21:32)
[2019-12-22] MEDS: MIRTAZAPINE 30 MG TABLET (FP) PO SCH (21:33)
[2019-12-23] MEDS: THIAMINE HCL 100 MG TABLET (FP) PO SCH (10:17)
[2019-12-23] MEDS: PRENATAL VITAMINS W/ FOLIC ACID TABLET (FP) PO SCH (10:17)
[2019-12-23] MEDS: GABAPENTIN 300 MG CAPSULE PO SCH ×2 (10:17→21:43)
[2019-12-23] MEDS: MOMETASONE FUROATE 220 MCG/IH INHALER IH SCH ×2 (10:17→21:42)
[2019-12-23] MEDS: ESCITALOPRAM OXALATE 20 MG TABLET PO SCH (10:17)
[2019-12-23] MEDS: FUROSEMIDE 40 MG TABLET (FP) PO SCH (10:17)
[2019-12-23] MEDS: NICOTINE 21 MG/24 HOURS TOPICAL PATCH TD SCH (10:18)
[2019-12-23] MEDS ORDERED: NALTREXONE MICROSPHERES (VIVITROL) 380 MG DISP.SYRIN IM ONE (10:43)
[2019-12-23] MEDS: MELATONIN 5 MG TABLETS PO PRN (21:43)
[2019-12-23] MEDS: MIRTAZAPINE 30 MG TABLET (FP) PO SCH (21:43)
[2019-12-23] MEDS: IBUPROFEN 400 MG TABLET (FP) PO PRN (21:44)
[2019-12-24] MEDS: MOMETASONE FUROATE 220 MCG/IH INHALER IH SCH ×2 (09:44→21:27)
[2019-12-24] MEDS: NICOTINE 21 MG/24 HOURS TOPICAL PATCH TD SCH (09:44)
[2019-12-24] MEDS: THIAMINE HCL 100 MG TABLET (FP) PO SCH (09:44)
[2019-12-24] MEDS: GABAPENTIN 300 MG CAPSULE PO SCH ×2 (09:44→21:27)
[2019-12-24] MEDS: PRENATAL VITAMINS W/ FOLIC ACID TABLET (FP) PO SCH (09:44)
[2019-12-24] MEDS: FUROSEMIDE 40 MG TABLET (FP) PO SCH (09:44)
[2019-12-24] MEDS: ESCITALOPRAM OXALATE 20 MG TABLET PO SCH (09:44)
[2019-12-24] MEDS: MIRTAZAPINE 30 MG TABLET (FP) PO SCH (21:27)
[2019-12-25 07:07] VITALS: TEMP 97.7
[2019-12-25] MEDS: MOMETASONE FUROATE 220 MCG/IH INHALER IH SCH ×2 (09:46→21:35)
[2019-12-25] MEDS: THIAMINE HCL 100 MG TABLET (FP) PO SCH (09:46)
[2019-12-25] MEDS: PRENATAL VITAMINS W/ FOLIC ACID TABLET (FP) PO SCH (09:46)
[2019-12-25] MEDS: NICOTINE 21 MG/24 HOURS TOPICAL PATCH TD SCH (09:46)
[2019-12-25] MEDS: FUROSEMIDE 40 MG TABLET (FP) PO SCH (09:46)
[2019-12-25] MEDS: ESCITALOPRAM OXALATE 20 MG TABLET PO SCH (09:46)
[2019-12-25] MEDS: GABAPENTIN 300 MG CAPSULE PO SCH ×2 (09:46→21:34)
--- NOTE | 2019-12-25 11:50 | PN ---
[facility] Progress Note Note: TC from FLORENTINO Ludwig - concerned about pitting bilateral leg edema - already on lasix 40mg daily- noted cr =0.6 and K=3.7 - will give one time extra dose lasix today and evaluate ongoing.
[2019-12-25] MEDS ORDERED: FUROSEMIDE 40 MG TABLET (FP) PO ONE (12:30)
[2019-12-25] MEDS: MIRTAZAPINE 30 MG TABLET (FP) PO SCH (21:34)
[2019-12-25] MEDS: MELATONIN 5 MG TABLETS PO PRN (21:34)
[2019-12-26] MEDS: IBUPROFEN 400 MG TABLET (FP) PO PRN (06:35)
[2019-12-26] MEDS: GABAPENTIN 300 MG CAPSULE PO SCH ×2 (09:57→21:26)
[2019-12-26] MEDS: ESCITALOPRAM OXALATE 20 MG TABLET PO SCH (09:57)
[2019-12-26] MEDS: FUROSEMIDE 40 MG TABLET (FP) PO SCH (09:57)
[2019-12-26] MEDS: NICOTINE 21 MG/24 HOURS TOPICAL PATCH TD SCH (09:57)
[2019-12-26] MEDS: THIAMINE HCL 100 MG TABLET (FP) PO SCH (09:58)
[2019-12-26] MEDS: PRENATAL VITAMINS W/ FOLIC ACID TABLET (FP) PO SCH (09:58)
[2019-12-26] MEDS: MOMETASONE FUROATE 220 MCG/IH INHALER IH SCH ×2 (09:59→21:26)
--- NOTE | 2019-12-26 12:37 | PN ---
S Progress Note Note: Psychiatric nurse pracititoner note: Patient scheduled for discharge tomorrow ( 12/27/19). A 30 day prescription of lexapro 20mg + Gabapentin 600mg BID + Remeron 30mg HS was electronically sent to [facility], [address] [place] [address].
[2019-12-26] MEDS: MELATONIN 5 MG TABLETS PO PRN (21:26)
[2019-12-26] MEDS: MIRTAZAPINE 30 MG TABLET (FP) PO SCH (21:26)
[2019-12-27 09:07] VITALS: BP 113/76; PULSE 78
[2019-12-27] MEDS: FUROSEMIDE 40 MG TABLET (FP) PO SCH (09:12)
[2019-12-27] MEDS: ESCITALOPRAM OXALATE 20 MG TABLET PO SCH (09:13)
[2019-12-27] MEDS: GABAPENTIN 300 MG CAPSULE PO SCH (09:13)
[2019-12-27] MEDS: THIAMINE HCL 100 MG TABLET (FP) PO SCH (09:13)
[2019-12-27] MEDS: MOMETASONE FUROATE 220 MCG/IH INHALER IH SCH (09:13)
[2019-12-27] MEDS: PRENATAL VITAMINS W/ FOLIC ACID TABLET (FP) PO SCH (09:13)
[2019-12-27] MEDS: NICOTINE 21 MG/24 HOURS TOPICAL PATCH TD SCH (09:14)
--- NOTE | 2019-12-27 09:25 | DS ---
[facility] Rehab Discharge Summary - [facility] Rehab Discharge Summary Admission Date: 11/30/19 Discharge Date: 12/27/19 - History Present History: Alcohol dependence - Discharge Physical Exam Vital Signs: Vital Signs Temperature 97.7 F 12/27/19 07:00 Pulse Rate 78 12/27/19 08:17 Respiratory Rate 17 12/27/19 08:17 Blood Pressure 113/76 12/27/19 08:17 O2 Sat by Pulse Oximetry (%) ROS: denies alcohol cravings, sweats, shakes, chest pain, sob and dizziness. PE: alert and oriented x 3 skin warm and dry in no acute distress ext full rom, amb ad latesha no tremors denies si/hi - Treatment Discharge Condition: Discharge condition good Hospital Course: Patient completed rehab today for alcohol dependence. He attended group meetin , 1:1 counseling sessions and evaluated and treated by psych team. Aftercare arranged for Next step day program at [facility]. Patient started on Vivitrol MAT during inpatient and tolerated treatment. Patient to continue with Vivitrol injections in OTP. Patient is motivated to maintain sobriety and is medically stable. He denies SI/HI. Patient medically advised to follow up with PCP within 1-2 weeks after discharge. Vital Signs Temperature 97.7 F 12/27/19 07:00 Pulse Rate 78 12/27/19 08:17 Respiratory Rate 17 12/27/19 08:17 Blood Pressure 113/76 12/27/19 08:17 O2 Sat by Pulse Oximetry (%) Laboratory Tests 12/01/19 12/01/19 12/01/19 07:35 07:35 07:35 WBC 5.2 RBC 4.17 Hgb 11.9 Hct 35.7 MCV 85.8 MCH 28.6 MCHC 33.4 RDW 16.9 H Plt Count 88 L MPV 8.8 Sodium 140 Potassium 3.7 Chloride 106 Carbon Dioxide 25 Anion Gap 9 BUN 20.5 H Creatinine 0.6 Est GFR (CKD-EPI)AfAm 130.27 Est GFR (CKD-EPI)NonAf 112.40 Random Glucose 101 Calcium 8.7 Total Bilirubin 0.6 AST 25 ALT 38 Alkaline Phosphatase 80 Total Protein 6.5 Albumin 3.6 Urine Color Urine Appearance Urine pH Ur Specific [place] Urine Protein Urine Glucose (UA) Urine Ketones Urine Blood Urine Nitrite Urine Bilirubin Urine Urobilinogen Ur Leukocyte Esterase RPR Titer Nonreactive 12/03/19 09:00 WBC RBC Hgb Hct MCV MCH MCHC RDW Plt Count MPV Sodium Potassium Chloride Carbon Dioxide Anion Gap BUN Creatinine Est GFR (CKD-EPI)AfAm Est GFR (CKD-EPI)NonAf Random Glucose Calcium Total Bilirubin AST ALT Alkaline Phosphatase Total Protein Albumin Urine Color Yellow Urine Appearance Clear Urine pH 6.0 Ur Specific [place] 1.011 Urine Protein Negative Urine Glucose (UA) Negative Urine Ketones Negative Urine Blood Negative Urine Nitrite Negative Urine Bilirubin Negative Urine Urobilinogen 0.2 Ur Leukocyte Esterase Negative RPR Titer Ambulatory Orders Gabapentin [Neurontin] 600 mg PO HS 11/30/19 Mometasone Furoate [Asmanex] 220 mcg IH BID 11/30/19 Nicotine Patch [Nicoderm Patch -] 1 patch TD DAILY 11/30/19 Nifedipine [Procardia Xl] 30 mg PO DAILY 11/30/19 Sertraline HCl [Zoloft -] 50 mg PO DAILY 11/30/19 Thiamine HCl [B-1] 100 mg PO DAILY 11/30/19 Escitalopram Oxalate [Lexapro -] 20 mg PO DAILY #30 tablet 12/26/19 Gabapentin 600 mg PO BID #60 tablet 12/26/19 Mirtazapine [Remeron -] 30 mg PO HS #30 tablet 12/26/19 Albuterol Sulfate Inhaler - [Ventolin HFA Inhaler -] 2 inh PO Q4H PRN #1 inhaler 12/27/19 Furosemide [Lasix -] 40 mg PO DAILY #15 tablet 12/27/19 Propranolol HCl 10 mg PO BID #30 tablet 12/27/19 - Medication Discharge Medications: Ambulatory Orders Gabapentin [Neurontin] 600 mg PO HS 11/30/19 Mometasone Furoate [Asmanex] 220 mcg IH BID 11/30/19 Nicotine Patch [Nicoderm Patch -] 1 patch TD DAILY 11/30/19 Nifedipine [Procardia Xl] 30 mg PO DAILY 11/30/19 Sertraline HCl [Zoloft -] 50 mg PO DAILY 11/30/19 Thiamine HCl [B-1] 100 mg PO DAILY 11/30/19 Escitalopram Oxalate [Lexapro -] 20 mg PO DAILY #30 tablet 12/26/19 Gabapentin 600 mg PO BID #60 tablet 12/26/19 Mirtazapine [Remeron -] 30 mg PO HS #30 tablet 12/26/19 Albuterol Sulfate Inhaler - [Ventolin HFA Inhaler -] 2 inh PO Q4H PRN #1 inhaler 12/27/19 Furosemide [Lasix -] 40 mg PO DAILY #15 tablet 12/27/19 Propranolol HCl 10 mg PO BID #30 tablet 12/27/19 - Medication-Assisted Treatment (MAT) Medication-Assisted Treatment (MAT): Yes Medication Prescribed: Vivitrol (inj) MAT Follow-up Referral: Next Step/[facility] - Discharge Instructions Diet, activity, other medical instructions: Diet: Reg as tolerated Activity: as tolerated Other medical instructions: follow up with pcp as recommended - Follow-up Referral Minutes to complete discharge: 35 - AMA Did Patient Leave Against Medical Advice: No
== END 2019-12-27 09:25 | disposition home or self-care (01) | DRG 772 ==
LOC: YASAS 15:55 → Y3W 20:07
PROVIDERS: ADMIT Allergy & Immunology; ATTEND Allergy & Immunology
PROC: HZ42ZZZ Group Counseling for Substance Abuse Treatment, Cognitive-Behavioral (ICD-10-PCS; principal; 2019-11-30)
DX: F10.20 Alcohol dependence, uncomplicated (principal); F17.210 Nicotine dependence, cigarettes, uncomplicated; F10.282 Alcohol dependence with alcohol-induced sleep disorder; F10.24 Alcohol dependence with alcohol-induced mood disorder; I10 Essential (primary) hypertension; K21.9 Gastro-esophageal reflux disease without esophagitis; K70.30 Alcoholic cirrhosis of liver without ascites; J45.20 Mild intermittent asthma, uncomplicated; R60.0 Localized edema; Z62.810 Personal history of physical and sexual abuse in childhood; Z87.19 Personal history of other diseases of the digestive system; Z86.2 Personal history of diseases of the blood and blood-forming organs and certain disorders involving the immune mechanism; Z91.5 Personal history of self-harm; Z56.0 Unemployment, unspecified; Z59.0 Homelessness
CPT/HCPCS: 36415; 80053; 81003; 85027; 86593; J2315

== ENCOUNTER 2020-05-17 15:02 | Emergency (ER) | payer OTHER ==
[2020-05-17 15:21] VITALS: BP 103/61; PULSE 73; TEMP 97.9; BMI 37.8
--- NOTE | 2020-05-17 17:15 | PDOC ---
History of Present Illness - General Chief Complaint: Injury Stated Complaint: FALL Time Seen by Provider: 05/17/20 16:28 History Source: Patient Exam Limitations: No Limitations - History of Present Illness Initial Comments: 05/17/20 17:10 55 year old male long standing ETOH abuse, hypertension, anemia, GERD, cirrhosis of the liver, asthma, alcohol related seizures, esophageal varices and psych presents to the ED after a syncopal event and falling down a flight of stairs. Patient is a very poor historian but states that he started a new blood pressure medicine the other day became dizzy and fell down the stairs he does not specifically recall if he syncopized but felt as if he did pass out. Patient states that he has headache dizziness shoulder pain. Patient does not specifically know if he struck his head but is complaining of head pain. Pt otherwise denies: fevers, chills, neck pain, chest pain, shortness of breath, palpitations, back pain, abdominal pain, nausea, vomiting, diarrhea, constipation. Of note pt states he has not drank today and is on vivitrol Past History - Medical History Allergies/Adverse Reactions: Allergies Allergy/AdvReac Type Severity Reaction Status Date / Time No Known Drug Allergies Allergy Unknown Verified 05/17/20 15:21 lactose AdvReac Unknown LACTOSE Verified 05/17/20 15:21 INTOLERANCE Home Medications: Ambulatory Orders Gabapentin [Neurontin] 600 mg PO HS 11/30/19 Mometasone Furoate [Asmanex] 220 mcg IH BID 11/30/19 Nicotine Patch [Nicoderm Patch -] 1 patch TD DAILY 11/30/19 Sertraline HCl [Zoloft -] 50 mg PO DAILY 11/30/19 Thiamine HCl [B-1] 100 mg PO DAILY 11/30/19 Escitalopram Oxalate [Lexapro -] 20 mg PO DAILY #30 tablet 12/26/19 Gabapentin 600 mg PO BID #60 tablet 12/26/19 Mirtazapine [Remeron -] 30 mg PO HS #30 tablet 12/26/19 Albuterol Sulfate Inhaler - [Ventolin HFA Inhaler -] 2 inh PO Q4H PRN #1 inhaler 12/27/19 Furosemide [Lasix -] 40 mg PO DAILY #15 tablet 12/27/19 Propranolol HCl 10 mg PO BID #30 tablet 12/27/19 Nifedipine ER [Procardia XL -] 30 mg PO DAILY tab.er.24 03/17/20 Anemia: Yes (NOT ON MEDICATION) Asthma: Yes (ON ALBUTEROL INHALER) Cancer: No Cardiac Disorders: No CVA: No COPD: No CHF: No Dementia: No Diabetes: No GI Disorders: Yes (GI bleeding, esophageal varice) Disorders: No HTN: Yes (Not on medication) Hypercholesterolemia: No Kidney Stones: No Liver Disease: No Seizures: Yes (alcohol related-last episode was in 2019) Thyroid Disease: No - Surgical History Abdominal Surgery: No Appendectomy: No Cardiac Surgery: No Cholecystectomy: No Lung Surgery: No Neurologic Surgery: No Orthopedic Surgery: No - Reproductive History Testicular Surgery: No - Psycho-Social/Smoking History Smoking History: Current every day smoker Have you smoked in the past 12 months: Yes Number of Cigarettes Smoked Daily: 5 Cigars Per Day: 0 Information on smoking cessation initiated: No 'Breaking Loose' booklet given: 03/13/20 - Substance Abuse Hx (Audit-C & DAST Scrn) How often the patient has a drink containing alcohol: 4 0r more times/wk Number of drinks the patient has on a typical day: 10 or more How often the patient has six or more drinks on one occasion: Daily or almost daily Score: In Men: 4 or > Positive; In Women: 3 or > Positive: 12 Screen Result (Pos requires Nsg. Audit-10AR): Positive In the last yr the pt used illegal drug/Rx for NonMed reason: Yes Score: Yes response is considered Positive: 1 Screen Result (Positive result requires Nsg. DAST-10): Positive *Physical Exam - Vital Signs Last Vital Signs Temp Pulse Resp BP Pulse Ox 97.9 F 73 19 103/61 100 05/17/20 15:18 05/17/20 15:18 05/17/20 15:18 05/17/20 15:18 05/17/20 15:18 - Physical Exam 05/17/20 17:13 Gen: AAOx 3, no acute distress, comfortable, no signs of respiratory distress HENT: atraumatic, normocephalic with no laceration or contusion. Nasal mucosa without erythema. Oropharynx without erythema or exudates. Mucous membranes moist. EYES: PERRL, EOM intact, conjunctiva pink NECK: supple; trachea midline; no JVD, no lymphadenopathy, or thyromegaly CV: RRR no murmurs, gallops, or rubs. CHEST: CTA poor lung sounds 2/2 pt noncompliance ABD: +BS/ND. no TTP; soft, no rebound, no guarding EXTREMITY: no cyanosis or erythema. 2+ radial pulse. 2+ B/L LE edema RUE: TTP to posterior shoulder unwilling to range 2/2 pain SKIN: no rash, warm and dry, no diaphoresis HEME: no purpura or ecchymosis NEURO: slurred speech, CN II-XII intact, sensation intact, unable to assess gait, no cerebellar deficits MS: 5/5 strength in all extremities, FROM intact in all extremities except RUE. ED Treatment Course - LABORATORY CBC & Chemistry Diagram: 05/17/20 17:25 05/17/20 17:25 - RADIOLOGY Radiology Studies Ordered: Category Date Time Status ABDOMEN & PELVIS CT WITH CONTR [CT] Stat CT Scan 05/17/20 16:[address] WITH CONTRAST [CT] Stat CT Scan 05/17/20 16:[address] WITHOUT CONTRAST [CT] Stat CT Scan 05/17/20 16:49 Ordered SHOULDER-RIGHT [RAD] Stat Radiology 05/17/20 16:52 Ordered Medical Decision Making - Medical Decision Making 05/17/20 17:15 55-year-old male multiple comorbidities presenting after syncopal event with trip and fall down a flight of stairs. Vital signs stable Will obtain labs x-ray shoulder CT head CT cervical spine CT chest abdomen and pelvis Will admit for syncopal event with trauma Labs grossly WNL except mild anemia EKG shows prolonged QT 1g Mg given Shoulder XR shows gross deformity to scapula Pt pending guzman CT scans Decision was made to transfer patient to [facility] as a trauma I spoke with Dr. GIRALDO of trauma surgery who recommends patient immediately transferred as a level [address] Giraldo states that he feels comfortable transferring the patient without the CAT scans as they will get them there immediately and have the reads by his team. I agree with this decision as it will enhance patient care. Patient to be transferred to [facility] EMS transport scheduled for 2229. Patient is consented for transfer. Discharge - Discharge Information Problems reviewed: Yes Clinical Impression/Diagnosis: Trauma Condition: Stable Disposition: TRANSFER ACUTE CARE/OTHER HOSP - Follow up/Referral - Patient Discharge Instructions - Post Discharge Activity - Transfer to Acute Care Facility Receiving Facility Name: [facility] (Dr Giraldo)
[2020-05-17] MEDS ORDERED: MAGNESIUM SULF 50% (8.12 MEQ/2 ML-1 GM VIAL) IVPB ONE (17:18)
[2020-05-17] MEDS ORDERED: MAGNESIUM 1GM/D5W 100ML - 100 ML IVPB IVPB ONE (17:30)
[2020-05-17] MEDS ORDERED: MAGNESIUM SULF 50% (8.12 MEQ/2 ML-1 GM VIAL) ONE (17:30)
[2020-05-17 17:33] LABS: BASO % 0.3 % (0-2.0); EOS % 1.1 % (0-4.5); HEMATOCRIT 34.2 % (35.4-49); HEMOGLOBIN 11.2 GM/dL (11.7-16.9); MCH 28.3 pg (25.7-33.7); MCHC 32.7 g/dl (32.0-35.9); MEAN CELL VOLUME 86.6 fl (80-96); MEAN PLT VOLUME 8.4 fl (7.5-11.1); MONO % 7.3 % (3.8-10.2); NEUT % 79.3 % (42.8-82.8); PLATELET COUNT 78 K/MM3 (134-434); RBC 3.95 M/mm3 (4.00-5.60); RDW 17.6 % (11.9-15.9)
[2020-05-17] MEDS ORDERED: MAGNESIUM 1GM/D5W - 1 GM/100 ML IVPB IVPB ONE (17:33)
[2020-05-17 17:48] LABS: PROTHROMBIN TIME (PATIENT) 11.8 SEC (9.7-13.0)
[2020-05-17 17:50] LABS: ACTIVATED PTT 23.8 SECONDS (25.2-36.5)
[2020-05-17 18:38] LABS: ALBUMIN 3.8 g/dl (3.4-5.0); ALK PHOS 89 U/L (45-117); ANION GAP 8 MMOL/L (8-16); BILIRUBIN,TOTAL 0.6 mg/dL (0.2-1); BLOOD UREA NITROGEN 17.4 mg/dL (7-18); CALCIUM 8.3 mg/dL (8.5-10.1); CHLORIDE 107 mmol/L (98-107); CO2 27 mmol/L (21-32); CREATININE 0.8 mg/dL (0.55-1.3); GLUCOSE,RANDOM 118 mg/dL (74-106); N-TERMINAL BNP 59.6 pg/ml (5-125); POTASSIUM 4.2 mmol/L (3.5-5.1); SGOT/AST 24 U/L (15-37); SGPT/ALT 25 U/L (13-61); SODIUM 141 mmol/L (136-145); TOT PROT 6.5 g/dl (6.4-8.2)
--- NOTE | 2020-05-18 14:52 | EKG ---
Test Reason : Blood Pressure : / mmHG Vent. Rate : 067 BPM Atrial Rate : 067 BPM P-R Int : 140 ms QRS Dur : 092 ms QT Int : 440 ms P-R-T Axes : 024 036 052 degrees QTc Int : 464 ms NORMAL SINUS RHYTHM NONSPECIFIC T WAVE ABNORMALITY PROLONGED QT ABNORMAL ECG WHEN COMPARED WITH ECG OF 13-MAR-2020 23:00, NONSPECIFIC T WAVE ABNORMALITY NOW EVIDENT IN ANTERIOR LEADS Confirmed by RYAN FABIAN, ZAYRA ([id number]) on 05/18/2020 2:52:10 PM Referred By: Confirmed By:ZAYRA DAVIS MD
== END 2020-05-17 23:18 | disposition short-term general hospital (02) ==
LOC: JER 15:02
PROC: 3E033GC Introduction of Other Therapeutic Substance into Peripheral Vein, Percutaneous Approach (ICD-10-PCS; principal; 2020-05-17)
DX: R55 Syncope and collapse (principal); R51 Headache; W10.8XXA Fall (on) (from) other stairs and steps, initial encounter
CPT/HCPCS: 36415; 73030-TC-RT-FY; 80053; 80307; 82140; 82550; 83880; 84484; 85025; 85610; 85730; 93005; 93010; 99285-25

== ENCOUNTER 2020-06-01 15:32 | Emergency (ER) | payer OTHER ==
[2020-06-01 15:38] VITALS: TEMP 97.9; BMI 54.9
--- NOTE | 2020-06-01 16:24 | PDOC ---
History of Present Illness - General Chief Complaint: Pain, Acute Stated Complaint: R /ARM PAIN Time Seen by Provider: 06/01/20 15:56 History Source: Patient Exam Limitations: No Limitations - History of Present Illness Initial Comments: 06/01/20 16:18 55-year-old undomiciled male history of hypertension, anemia, GERD, asthma, alcohol abuse, cirrhosis and esophageal varices, had a fall 05/17/20 sustaining right scapular fracture, transferred to [facility] as a level 2 trauma. He was discharged May 24, 2020 and reports he has been sleeping on the floor at his sisters small apartment. Presents today complaining of right upper back pain and bilateral lower extremity swelling. Denies chest pain, shortness of breath, fever, chills, abdominal pain, nausea, vomiting, diarrhea. Patient reports last drink was 2 months ago. Consumes marijuana almost daily. Patient was advised to follow-up with orthopedics at [facility] however has been unable to schedule an appointment given he is unable to read and write. ROS: as above PE: GENERAL: Obese, NAD HEAD: NCAT EYES: Pupils equal, round and reactive to light, sclera anicteric, conjunctiva clear ENT: pharynx: no erythema, no exudate, uvula midline NECK: supple CHEST: nontender RESP: clear, no w/r/r CARDIO: rrr, no m/g/r ABD: +BS, soft, nontender, non distended BACK: no midline spinal ttp, no CVAT EXTREMITIES: Limited range of motion to right shoulder, patient wearing sling, lidocaine patch noted over right scapula, bilateral lower extremity nonpitting edema, positive pedal pulses, no warmth, erythema or tenderness to palpation noted NEUROLOGICAL: Normal speech, normal gait SKIN: Warm, Dry 06/01/20 20:00 Is this a multiple visit Asthma Patient?: No Past History - Medical History Allergies/Adverse Reactions: Allergies Allergy/AdvReac Type Severity Reaction Status Date / Time No Known Drug Allergies Allergy Unknown Verified 05/17/20 15:21 lactose AdvReac Unknown LACTOSE Verified 05/17/20 15:21 INTOLERANCE Home Medications: Ambulatory Orders Gabapentin [Neurontin] 600 mg PO HS 11/30/19 Mometasone Furoate [Asmanex] 220 mcg IH BID 11/30/19 Nicotine Patch [Nicoderm Patch -] 1 patch TD DAILY 11/30/19 Sertraline HCl [Zoloft -] 50 mg PO DAILY 11/30/19 Thiamine HCl [B-1] 100 mg PO DAILY 11/30/19 Escitalopram Oxalate [Lexapro -] 20 mg PO DAILY #30 tablet 12/26/19 Gabapentin 600 mg PO BID #60 tablet 12/26/19 Mirtazapine [Remeron -] 30 mg PO HS #30 tablet 12/26/19 Albuterol Sulfate Inhaler - [Ventolin HFA Inhaler -] 2 inh PO Q4H PRN #1 inhaler 12/27/19 Furosemide [Lasix -] 40 mg PO DAILY #15 tablet 12/27/19 Propranolol HCl 10 mg PO BID #30 tablet 12/27/19 Nifedipine ER [Procardia XL -] 30 mg PO DAILY tab.er.24 03/17/20 Anemia: Yes (NOT ON MEDICATION) Asthma: Yes (ON ALBUTEROL INHALER) Cancer: No Cardiac Disorders: No CVA: No COPD: No CHF: No Dementia: No Diabetes: No GI Disorders: Yes (GI bleeding, esophageal varice) Disorders: No HTN: Yes (Not on medication) Hypercholesterolemia: No Kidney Stones: No Liver Disease: No Seizures: Yes (alcohol related-last episode was in 2019) Thyroid Disease: No - Surgical History Abdominal Surgery: No Appendectomy: No Cardiac Surgery: No Cholecystectomy: No Lung Surgery: No Neurologic Surgery: No Orthopedic Surgery: No - Reproductive History Testicular Surgery: No - Psycho-Social/Smoking History Smoking History: Never smoked Have you smoked in the past 12 months: Yes Number of Cigarettes Smoked Daily: 5 Cigars Per Day: 0 Information on smoking cessation initiated: No 'Breaking Loose' booklet given: 03/13/20 - Substance Abuse Hx (Audit-C & DAST Scrn) How often the patient has a drink containing alcohol: Never Score: In Men: 4 or > Positive; In Women: 3 or > Positive: 0 Screen Result (Pos requires Nsg. Audit-10AR): Negative *Physical Exam - Vital Signs Last Vital Signs Temp Pulse Resp BP Pulse Ox 97.9 F 80 17 112/69 97 06/01/20 15:36 06/01/20 15:36 06/01/20 15:36 06/01/20 15:36 06/01/20 15:36 ED Treatment Course - LABORATORY CBC & Chemistry Diagram: 06/01/20 16:35 06/01/20 16:35 - RADIOLOGY Radiology Studies Ordered: Category Date Time Status DUPLEX VASCUL US-2LEGS [US] Stat Ultrasound 06/01/20 16:14 Ordered Medical Decision Making - Medical Decision Making 06/01/20 20:04 55-year-old undomiciled male history of hypertension, anemia, GERD, asthma, alcohol abuse, cirrhosis and esophageal varices, had a fall 05/17/20 sustaining right scapular fracture, transferred to [facility] as a level 2 trauma. He was discharged May 24, 2020 and reports he has been sleeping on t he floor at his sisters small apartment. Presents today complaining of right upper back pain and bilateral lower extremity swelling. Denies chest pain, shortness of breath, fever, chills, abdominal pain, nausea, vomiting, diarrhea. Patient reports last drink was 2 months ago. Consumes marijuana almost daily. Patient was advised to follow-up with orthopedics at [facility] however has been unable to schedule an appointment given he is unable to read and write. Reviewed lab results Pain improved with analgesia Chest x-ray: No acute findings Bilateral lower extremity ultrasound: Negative for DVT bilaterally, right popliteal fossa cyst 3.3 x 2 x 1.4 cm Patient tolerated p.o. Stable for discharge 06/01/20 20:06 Discharge - Discharge Information Problems reviewed: Yes Clinical Impression/Diagnosis: Pain of right scapula Condition: Stable Disposition: HOME - Admission No - Follow up/Referral - Patient Discharge Instructions Additional Instructions: You must follow-up with an orthopedist within 1 week Take acetaminophen and ibuprofen every 6 hours as needed for pain Continue taking your regular medications as directed follow-up with your primary care physician within 1 week If you develop fever, chest pain, shortness of breath or any worsening concerns please return to ED - Post Discharge Activity
[2020-06-01 17:01] LABS: BASO % 0.5 % (0-2.0); EOS % 2.1 % (0-4.5); HEMATOCRIT 33.5 % (35.4-49); HEMOGLOBIN 10.8 GM/dL (11.7-16.9); LYMPH % 13.2 % (8-40); MCH 28.2 pg (25.7-33.7); MCHC 32.2 g/dl (32.0-35.9); MEAN CELL VOLUME 87.5 fl (80-96); MEAN PLT VOLUME 7.7 fl (7.5-11.1); MONO % 7.7 % (3.8-10.2); NEUT % 76.5 % (42.8-82.8); PLATELET COUNT 99 K/MM3 (134-434); RBC 3.83 M/mm3 (4.00-5.60); WHITE BLOOD COUNT 5.3 K/mm3 (4.0-10.0)
[2020-06-01 17:08] LABS: INR 0.93 (0.83-1.09)
[2020-06-01 17:10] LABS: ACTIVATED PTT 32.3 SECONDS (25.2-36.5)
[2020-06-01 17:28] LABS: ALBUMIN 3.5 g/dl (3.4-5.0); BILIRUBIN,TOTAL 0.4 mg/dL (0.2-1); BLOOD UREA NITROGEN 19.2 mg/dL (7-18); CALCIUM 8.3 mg/dL (8.5-10.1); CREATININE 0.6 mg/dL (0.55-1.3); N-TERMINAL BNP 131.7 pg/ml (5-125); POTASSIUM 4.3 mmol/L (3.5-5.1); TOT PROT 6.3 g/dl (6.4-8.2)
[2020-06-01 20:19] VITALS: BP 115/72; PULSE 82
== END 2020-06-01 20:19 | disposition home or self-care (01) ==
LOC: JER 15:32
DX: M25.511 Pain in right shoulder (principal)
CPT/HCPCS: 36415; 71046-TC-FY; 80053; 83880; 85025; 85610; 85730; 93970-TC; 99285-25